=== PATIENT | male | born 1945 | race Caucasian/White ===

== ENCOUNTER 2018-03-30 00:35 | Inpatient (IN) | payer MEDICARE, MEDICAID ==
[2018-03-30] MEDS ORDERED: NORMAL SALINE 1000 ML 2,000 ML IV ONE (00:50)
[2018-03-30] MEDS ORDERED: PIPERACILLIN/TAZOBACTAM 4.5 GM VIAL IV ONE (00:50)
[2018-03-30] MEDS ORDERED: VANCOMYCIN HCL INJ 1000 MG VIAL IV ONE (00:50)
[2018-03-30] MEDS ORDERED: ACETAMINOPHEN 650 MG SUPP.RECT PR ONE (00:53)
--- NOTE | 2018-03-30 00:57 | ER Document Report ---
ED Fever - General Stated Complaint: FEVER Mode of Arrival: Medic Information source: Outside Facility Records TRAVEL OUTSIDE OF THE [place] 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 Patient is poorly responsive but cannot give accurate history. History therefore are by transfer record notes. He apparently received Tylenol 650 mg suppository which was noted at the time of nursing assessment as well. - Related Data Allergies/Adverse Reactions: No Known Allergies Allergy (Verified 09/08/14 17:36) Past Medical History - Social History Smoking Status: Unknown if Ever Smoked Family History: Reviewed & Not Pertinent - Past Medical History Cardiac Medical History: Reports: Hx Atrial Fibrillation, Hx Hypertension Neurological Medical History: Reports: Hx Cerebrovascular Accident Endocrine Medical History: Reports: Hx Hypothyroidism Psychiatric Medical History: Reports: Hx Bipolar Disorder, Hx Depression, Hx Schizophrenia Infectious Medical History: Reports: Hx C-Diff - September 2013 Past Surgical History: Reports: Hx Herniorrhaphy - ventral hernia repair - Immunizations Hx Diphtheria, Pertussis, Tetanus Vaccination: Yes Review of Systems - Review of Systems -: Yes ROS unobtainable due to patient's medical condition Physical Exam - Vital signs Vitals: Temp Pulse Resp BP Pulse Ox 102.7 F H 166 H 36 H 79/50 L 84 L 03/30/18 00:35 03/30/18 00:35 03/30/18 00:35 03/30/18 00:35 03/30/18 00:35 Interpretation: Tachycardic - Notes Notes: GENERAL: VS as per nursing doc. chronically ill-appearing male in no acute distress. HEAD: Atraumatic, normocephalic. EYES: Pupils are sluggish 2 mm, sclera anicteric, no conjunctival injection or discharge. ENT: Nares patent, airway is patent, dry mucous membranes. NECK: Normal range of motion, no lymphadenopathy. LUNGS: Rhonchi noted bilaterally with scattered rails i. HEART: Very tachycardic, slightly irregular. ABDOMEN: Soft, scaphoid, no appreciable tenderness noted. Midline scar noted BACK: No notable CVA tenderness. EXTREMITIES: Contractures noted with muscular wasting NEUROLOGICAL: Moans to noxious stimuli with some withdrawal. PSYCH: Poorly responsive. SKIN: Warm, dry, no petechiae Course - Re-evaluation Re-evalutation: 03/30/18 04:38 I spoke with the patient's next of kin who is Janette Tobias [phone] and discussed with her the severity of his illness and prognostically he has little reserved for such an illness. She states he should remain a full code at this point and I obtained verbal consent from her for a central line if needed after a risk discussion to include significant bleeding, infection, pneumothorax. 03/30/18 05:05 Patient had a fairly undulating course tachycardia would intermittently improved and worsen again spontaneously and blood pressure would stay above 65 map and then would drop below requiring us to finally start Levophed. At this point he is requiring about 6/h to keep his blood pressure map above 65 with a heart rate in the 110s-120s. - Vital Signs Vital signs: Temp Pulse Resp BP Pulse Ox 97.2 F 101 H 22 H 129/67 H 96 03/31/18 21:47 03/31/18 20:50 03/31/18 20:50 03/31/18 18:10 03/31/18 20:50 - Laboratory Result Diagrams: 03/31/18 10:55 03/31/18 20:55 Laboratory results interpreted by me: 03/30/18 03/30/18 03/30/18 01:05 01:05 01:05 RBC 3.39 L Hgb 10.8 L Hct 32.2 L RDW 16.6 H Seg Neuts % (Manual) 82 H Band Neutrophils % 1 L Lymphocytes % (Manual) 12 L Abs Neuts (Manual) 8.5 H PT 10.5 L ABG pO2 ABG HCO3 ABG O2 Saturation VBG pH Sodium 148.4 H Carbon Dioxide 32 H BUN 51 H Est GFR (Non-Af Amer) 59 L Direct Bilirubin 0.7 H AST 121 H Creatine Kinase Albumin 2.9 L Urine Protein Urine Blood Urine Urobilinogen Ur Leukocyte Esterase Urine Ascorbic Acid 03/30/18 03/30/18 03/30/18 01:05 01:05 01:05 RBC Hgb Hct RDW Seg Neuts % (Manual) Band Neutrophils % Lymphocytes % (Manual) Abs Neuts (Manual) PT ABG pO2 ABG HCO3 ABG O2 Saturation VBG pH 7.49 H Sodium Carbon Dioxide BUN Est GFR (Non-Af Amer) Direct Bilirubin AST Creatine Kinase 477 H Albumin Urine Protein 100 H Urine Blood SMALL H Urine Urobilinogen 8.0 H Ur Leukocyte Esterase TRACE H Urine Ascorbic Acid 40 H 03/30/18 03:21 RBC Hgb Hct RDW Seg Neuts % (Manual) Band Neutrophils % Lymphocytes % (Manual) Abs Neuts (Manual) PT ABG pO2 61.8 L ABG HCO3 24.6 H ABG O2 Saturation 91.5 L VBG pH Sodium Carbon Dioxide BUN Est GFR (Non-Af Amer) Direct Bilirubin AST Creatine Kinase Albumin Urine Protein Urine Blood Urine Urobilinogen Ur Leukocyte Esterase Urine Ascorbic Acid - Diagnostic Test Radiology reviewed: Image reviewed - Consistent with pneumonia, Reports reviewed - EKG Interpretation by Me Rate: Tachycardia - Appears to be atrial fibrillation with rate 179 a single PVC is noted. Rate related ST abnormalities. No EKG for comparison. - Consults Dr. Cruz Consulted provider: will come to ER Critical Care Note - Critical Care Note Total time excluding time spent on procedures (mins): 45 Discharge - Discharge Clinical Impression: Pneumonia Qualifiers: Pneumonia type: due to unspecified organism Laterality: unspecified laterality Lung location: unspecified part of lung Qualified Code(s): J18.9 - Pneumonia, unspecified organism Sepsis Qualifiers: Sepsis type: sepsis due to unspecified organism Qualified Code(s): A41.9 - Sepsis, unspecified organism Atrial fibrillation Qualifiers: Atrial fibrillation type: chronic Qualified Code(s): I48.2 - Chronic atrial fibrillation Condition: Critical Disposition: ADMITTED INPATIENT Admitting Provider: Hospitalist Dr. Cruz Unit Admitted: ICU
[2018-03-30 01:30] LABS: VENOUS BLOOD BASE EXCESS 6.9 mmol/L; VENOUS BLOOD HCO3 31.1 mmol/L (20-32); VENOUS BLOOD PCO2 42.1 mmHg (35-63); VENOUS BLOOD PH 7.49 (7.30-7.42)
[2018-03-30 01:31] LABS: HEMATOCRIT 32.2 % (37.9-51.0); HEMOGLOBIN 10.8 g/dL (13.5-17.0); INTERNATIONAL RATION (INR) 0.71; MEAN CORPUSCULAR HEMOGLOBIN 31.9 pg (27.0-33.4); MEAN CORPUSCULAR HGB CONC 33.6 g/dL (32.0-36.0); MEAN CORPUSCULAR VOLUME 95 fl (80-97); PLATELET COUNT 215 10^3/uL (150-450); PROTHROMBIN TIME 10.5 SEC (11.4-15.4); RED BLOOD COUNT 3.39 10^6/uL (4.35-5.55); RED CELL DISTRIBUTION WIDTH 16.6 % (11.5-14.0); WHITE BLOOD COUNT 10.2 10^3/uL (4.0-10.5)
[2018-03-30 01:41] LABS: APPEARANCE,URINE CLEAR; BILIRUBIN,URINE NEGATIVE (NEGATIVE); COLOR,URINE DARK YELLOW; GLUCOSE, URINE NEGATIVE (NEGATIVE); KETONES,URINE NEGATIVE (NEGATIVE); URINE SPECIFIC GRAVITY 1.027
[2018-03-30 01:42] LABS: LEUKOCYTE ESTERASE,URINE TRACE (NEGATIVE); NITRITE,URINE NEGATIVE (NEGATIVE); PROTEIN,URINE 100 mg/dL (NEGATIVE)
[2018-03-30 01:48] LABS: ABSOLUTE LYMPHOCYTES# (MANUAL) 1.2 10^3/uL (0.5-4.7); ABSOLUTE MONOCYTES # (MANUAL) 0.5 10^3/uL (0.1-1.4); ABSOLUTE NEUTROPHILS# (MANUAL) 8.5 10^3/uL (1.7-8.2); BAND NEUTROPHILS % (MANUAL) 1 % (3-5); BASOPHILS % (MANUAL) 0 % (0-2); EOSINOPHILS % (MANUAL) 0 % (0-6); LYMPHOCYTES % (MANUAL) 12 % (13-45); MONOCYTES % (MANUAL) 5 % (3-13); SEGMENTED NEUTROPHILS % (MAN) 82 % (42-78); TOTAL CELLS COUNTED 100
--- NOTE | 2018-03-30 01:48 | RADIOLOGY REPORT (SQ) ---
EXAM DESCRIPTION: CLINICAL HISTORY: 72 years Male Fever COMPLETED DATE/TME: 03/30/2018 00:50 COMPARISON: 07/04/2013. FINDINGS: Limited study by patient rotation. Left hilum is prominent and there is scarring or atelectasis in the midlung. Recommend follow-up with CT scan for further evaluation. Right apex is suboptimally evaluated increased density in the lateral aspect of the right upper lobe and right lung base which may reflect acute infectious or inflammatory process. IMPRESSION: Patchy areas of density in the right upper and right lower lobe which may reflect acute infectious or inflammatory process Prominent left hilum with some post obstructive atelectasis or infiltrate in the left mid and upper lung field. Recommend further evaluation with chest CT
[2018-03-30 01:49] LABS: ANISOCYTOSIS 1+; PLATELET COMMENT ADEQUATE; POLYCHROMASIA 1+
[2018-03-30 01:51] LABS: ALANINE AMINOTRANSFERASE 50 U/L (21-72); ALBUMIN 2.9 g/dL (3.5-5.0); ALKALINE PHOSPHATASE 53 U/L (38-126); ANION GAP 10 (5-19); ASPARTATE AMINO TRANSFERASE 121 U/L (17-59); BILIRUBIN,DIRECT 0.7 mg/dL (0.0-0.4); BILIRUBIN,TOTAL 0.9 mg/dL (0.2-1.3); BLOOD UREA NITROGEN 51 mg/dL (7-20); CALCIUM 9.7 mg/dL (8.4-10.2); CARBON DIOXIDE 32 mmol/L (22-30); CHLORIDE 106 mmol/L (98-107); GLUCOSE 101 mg/dL (75-110); POTASSIUM 3.7 mmol/L (3.6-5.0); SODIUM 148.4 mmol/L (137-145); TOTAL PROTEIN 6.6 g/dL (6.3-8.2)
[2018-03-30 03:39] LABS: ARTERIAL BLOOD BASE EXCESS -0.4 mmol/L; ARTERIAL BLOOD H2CO3 1.26 mmol/L (1.05-1.35); ARTERIAL BLOOD HCO3 24.6 mmol/L (20-24); ARTERIAL BLOOD O2 SATURATION 91.5 % (94-98); ARTERIAL BLOOD PCO2 41.8 mmHg (35-45); ARTERIAL BLOOD PH 7.39 (7.35-7.45); ARTERIAL BLOOD PO2 61.8 mmHg (80-100); ARTERIAL BLOOD TOTAL CO2 25.9 mmol/L (23-27)
[2018-03-30 03:40] LABS: ARTERIAL BLOOD FIO2 3L
[2018-03-30] MEDS ORDERED: DEXTROSE 5%-WATER 250 ML with NOREPINEPHRINE BITARTRATE 4 MG IV PRN ×4 (03:47→05:01)
[2018-03-30] MEDS ORDERED: DILTIAZEM HCL INJ 25 MG/5 ML VIAL IV ONE ×3 (03:48→05:46)
[2018-03-30] MEDS ORDERED: DILTIAZEM HCL/D5W 125 MG/125 ML RTUINJ IV PRN ×2 (05:01→05:45)
[2018-03-30] MEDS ORDERED: IPRATROPIUM/ALBUTEROL 0.5-2.5 MG/3 ML AMPUL NEB PRN (05:01)
[2018-03-30] MEDS ORDERED: GUAIFENESIN SYRP 200 MG/10 ML UDC PO PRN (05:01)
[2018-03-30] MEDS ORDERED: ACETAMINOPHEN 325 MG TABLET PO PRN (05:01)
[2018-03-30] MEDS ORDERED: NORMAL SALINE 1000 ML 1,000 ML IV PRN (05:15)
[2018-03-30] MEDS ORDERED: VANCOMYCIN HCL 0 MG in DEXTROSE 5%-WATER 250 ML IV NR ×2 (05:15→11:45)
[2018-03-30] MEDS ORDERED: DIGOXIN INJ 0.5 MG/2 ML AMPULE IV ONE ×2 (05:50→22:15)
[2018-03-30] MEDS ORDERED: HYDROCORTISONE SOD SUCCINATE INJ/PF 100 MG/2 ML SDV IV ONE (05:57)
--- NOTE | 2018-03-30 06:31 | PDOC H&P ---
History of Present Illness Admission Date/PCP: 03/30/18 05:47 Patient complains of: Fever History of Present Illness: NAIN CALL is a 72 year old male with a past medical history of atrial fibrillation, CVA and subsequent left-sided weakness, schizophrenia, bipolar disorder [facility] Patient is found poorly responsive and unable to provide history. Workup reveals severe hypotension, A. fib with RVR, right-sided pneumonia, severe sepsis, hypoxia and prerenal azotemia. He started on IV Cardizem, levo fed and receives 3 L of normal saline. Patient's next of kin his niece is at bedside verifying his wishes for DNR. Past Medical History Cardiac Medical History: Reports: Atrial Fibrillation, Hypertension Endocrine Medical History: Reports: Hypothyroidism Psychiatric Medical History: Reports: Bipolar Disorder, Depression, Schizoaffective Disorder Infectious Medical History: Reports: Clostridium Difficile - September 2013 Past Surgical History Past Surgical History: Reports: Herniorrhaphy - ventral hernia repair Social History Information Source: Relative, Emergency Med Personnel, [facility] Records Lives with: Retirement Smoking Status: Unknown if Ever Smoked Frequency of Alcohol Use: None Hx Recreational Drug Use: No Drugs: None Hx Prescription Drug Abuse: No - Advance Directive Resuscitation Status: Full Code Family History Family History: Hypertension Parental Family History Reviewed: Yes Children Family History Reviewed: Yes Sibling(s) Family History Reviewed.: Yes Medication/Allergy Home Medications: Apixaban [Eliquis] 5 mg PO BID 07/04/13 Aspirin [Aspirin EC] 81 mg PO DAILY 07/04/13 Benztropine Mesylate 1 mg PO DAILY 07/04/13 Clonazepam [Klonopin 0.5 mg Tablet Rapid Dissolve] 0.5 mg PO BID PRN 07/04/13 Haloperidol [Haldol 5 mg Tablet] 5 mg PO QHS 07/04/13 Hydrocodone Bit/Acetaminophen [Hydrocodon-Acetaminophen 5-500] 1 each PO BID PRN 07/04/13 Levothyroxine Sodium 50 mcg PO DAILY 07/04/13 Mirtazapine 30 mg PO QHS 07/04/13 Sertraline HCl [Zoloft] 150 mg PO QAM 07/04/13 Vitamin B Complex [Vitamin B-100 Complex] 1 each PO DAILY 07/04/13 Lorazepam [Ativan] 1 mg PO BID #14 tablet 08/17/14 Levofloxacin [Levaquin 500 mg Tablet] 500 mg PO DAILY #7 tablet 09/08/14 Albuterol Sulfate [Proair HFA] 2 puff IH Q4 PRN #1 inhaler 09/14/14 Atorvastatin Calcium [Lipitor] 20 mg PO QHS #10 tablet 09/14/14 Fluticasone/Salmeterol [Advair 250-50 Diskus 14 Dose/Diskus] 1 inh IH Q12 #0 inhaler 09/14/14 Omeprazole 20 mg PO DAILY #0 tablet. 09/14/14 Tamsulosin HCl [Flomax] 0.4 mg PO DAILY #0 cap.sr.24h 09/14/14 Allergies/Adverse Reactions: No Known Allergies Allergy (Verified 09/08/14 17:36) Review of Systems ROS unobtainable: Due to mental status - Unobtainable Constitutional: PRESENT: as per HPI, other - Unobtainable Physical Exam Vital Signs: Temp Pulse Resp BP Pulse Ox 102.7 F H 166 H 29 H 107/53 L 100 03/30/18 00:35 03/30/18 00:35 03/30/18 06:01 03/30/18 06:01 03/30/18 06:01 General appearance: PRESENT: disheveled, severe distress, thin, other - Temporal wasting, global muscular atrophy and contractures. ABSENT: cooperative Head exam: PRESENT: atraumatic, normocephalic Eye exam: PRESENT: conjunctiva pink, EOMI, PERRLA. ABSENT: scleral icterus Ear exam: PRESENT: normal external ear exam Mouth exam: PRESENT: dry mucosa, tongue midline. ABSENT: laceration, moist Neck exam: ABSENT: carotid bruit, JVD, lymphadenopathy, thyromegaly Respiratory exam: PRESENT: accessory muscle use, prolonged expiratory phas, retraction, rhonchi, tachypnea Cardiovascular exam: PRESENT: irregular rhythm, +S1, +S2, tachycardia Pulses: PRESENT: normal dorsalis pedis pul Vascular exam: PRESENT: normal capillary refill GI/Abdominal exam: PRESENT: normal bowel sounds, soft. ABSENT: distended, guarding, mass, organolmegaly, rebound, tenderness Rectal exam: PRESENT: deferred Extremities exam: PRESENT: full ROM. ABSENT: calf tenderness, clubbing, pedal edema Neurological exam: PRESENT: altered, awake, oriented to person, CN II-XII grossly intact. ABSENT: motor sensory deficit Skin exam: PRESENT: dry, intact, warm. ABSENT: cyanosis, rash Results Impressions: Chest X-Ray 03/30/18 00:50 IMPRESSION: Patchy areas of density in the right upper and right lower lobe which may reflect acute infectious or inflammatory process Prominent left hilum with some post obstructive atelectasis or infiltrate in the left mid and upper lung field. Recommend further evaluation with chest CT Assessment & Plan - Diagnosis (1) Atrial fibrillation Is this a current diagnosis for this admission?: Yes Plan: IV Cardizem, optimize fluid status, digoxin as needed, follow-up cardiac enzymes (2) Pneumonia Is this a current diagnosis for this admission?: Yes Plan: Pneumonia care set, follow-up CBC, blood and sputum culture (3) Sepsis Is this a current diagnosis for this admission?: Yes Plan: Secondary to pneumonia, IV fluid challenge, empiric Solu-Cortef, levo fed as needed. Patient's CODE STATUS verified as DNR - Time Time Spent: 50 to 70 Minutes - Inpatient Certification Medical Necessity: Need Close Monitoring Due to Risk of Patient Decompensation
[2018-03-30 07:11] LABS: CREATINE KINASE MB 2.9 ng/mL (<4.55)
[2018-03-30 07:16] LABS: TROPONIN I 0.077 ng/mL
[2018-03-30] MEDS ORDERED: LEVALBUTEROL HCL NEB 1.25 MG/3 ML AMPUL NEB SCH (08:00)
[2018-03-30 08:21] LABS: CREATINE KINASE MB 5.17 ng/mL (<4.55); TROPONIN I 0.061 ng/mL
[2018-03-30] MEDS ORDERED: APIXABAN 5 MG TABLET PO SCH (10:00)
[2018-03-30] MEDS ORDERED: CLONAZEPAM 1 MG TABLET PO SCH (10:00)
[2018-03-30] MEDS ORDERED: ASPIRIN 81 MG TABLET, ENT COATED PO SCH (10:00)
[2018-03-30] MEDS ORDERED: METHYLPREDNISOLONE INJ 125 MG/2 ML SDV IV ONE (11:17)
[2018-03-30] MEDS ORDERED: RINGERS SOLUTION,LACTATED 1,000 ML IV ONE (11:30)
[2018-03-30] MEDS ORDERED: DIAZEPAM INJ 10 MG/2 ML DISP.SYRIN IV PRN (11:32)
[2018-03-30] MEDS: CEFEPIME 2 GM/D5W RTU 2 GM/50 ML RTUPB IV SCH ×2 (11:45→17:48)
[2018-03-30] MEDS: LEVALBUTEROL HCL NEB 1.25 MG/3 ML AMPUL NEB SCH ×3 (11:51→20:30)
[2018-03-30] MEDS: IPRATROPIUM BROMIDE 0.02% NEB 0.5 MG/2.5 ML AMPUL NEB SCH ×3 (11:51→20:30)
[2018-03-30] MEDS: NORMAL SALINE 1000 ML 1,000 ML IV PRN ×2 (12:23→22:24)
[2018-03-30] MEDS ORDERED: DIGOXIN INJ 0.5 MG/2 ML AMPULE ONE (12:26)
[2018-03-30] MEDS: ENOXAPARIN SODIUM INJ 60 MG/0.6 ML DISP.SYRIN SUBCUT SCH ×2 (12:29→22:23)
[2018-03-30] MEDS: DIGOXIN INJ 0.5 MG/2 ML AMPULE IV SCH (12:30)
--- NOTE | 2018-03-30 12:33 | PDOC PROGRESS REPORT ---
Subjective Progress Note for:: 03/30/18 Subjective:: NAIN CALL is a 72 year old male presenting with a fever of 102 from [facility] facility. In the ER he was found to be poorly responsive with severe sepsis causing & hypotension, A. fib with RVR, and an acute exacerbation of COPD versus multilobar pneumonia with hypoxia. He was unable to provide any medical information due to his severe illness and dementia. He was admitted to the intensive care unit for further treatment. 03/30/18: Mr. Call has been started on a aggressive ulnar toilet utilizing levalbuterol and ipratropium given every 4 hours. Additionally IV steroids and IV fluids have been provided to treat the inflammatory and dehydration components of his illness. His hypertension has been addressed with both IV fluids and IV Levophed however the atrial fibrillation with RVR remains poorly controlled and further efforts at controlling it with digoxin will be continued. Sepsis is being treated with a multiple antibiotic therapy regimen. Thus far his response has been somewhat limited however will make continued efforts while providing both supportive and comfortive care. Reason For Visit: SEVERE SEPSIS PNEUMONIA, DEMENTIA Physical Exam Vital Signs: Temp Pulse Resp BP Pulse Ox 97.2 F 126 H 24 H 99/48 L 98 03/30/18 10:10 03/30/18 11:53 03/30/18 11:53 03/30/18 10:00 03/30/18 11:53 Intake & Output 03/29/18 03/30/18 03/31/18 06:59 06:59 06:59 Intake Total 43 37 Output Total 100 Balance 43 -63 Weight 51.3 kg General appearance: PRESENT: thin, other - Poorly nourished, in moderate distress due to respiratory status Head exam: PRESENT: atraumatic, normocephalic Eye exam: PRESENT: conjunctiva pink. ABSENT: conjunctival injection Ear exam: PRESENT: normal external ear exam. ABSENT: bleeding, drainage Mouth exam: PRESENT: moist, neck supple Neck exam: ABSENT: JVD, thyromegaly, tracheal deviation Respiratory exam: PRESENT: accessory muscle use, decreased breath sounds, prolonged expiratory phas, rales - Coarse in all medrano, retraction, symmetrical , tachypnea, wheezes Cardiovascular exam: PRESENT: irregular rhythm, tachycardia Pulses: PRESENT: normal carotid pulses, normal radial pulses, normal dorsalis pedis pul Vascular exam: PRESENT: normal capillary refill, pallor - Moderate with barkley tones noted in the skin GI/Abdominal exam: PRESENT: soft. ABSENT: distended Rectal exam: PRESENT: deferred Extremities exam: ABSENT: calf tenderness, joint swelling, pedal edema Musculoskeletal exam: ABSENT: deformity, dislocation Neurological exam: PRESENT: alert, awake, CN II-XII grossly intact. ABSENT: motor sensory deficit Psychiatric exam: PRESENT: anxious, flat affect. ABSENT: agitated Skin exam: PRESENT: dry, pallor. ABSENT: jaundice, rash, urticaria Results Laboratory Results: 03/30/18 03/30/18 07:27 07:27 Creatine Kinase 431 H CK-MB (CK-2) 5.17 H Troponin I 0.061 Impressions: Chest X-Ray 03/30/18 00:50 IMPRESSION: Patchy areas of density in the right upper and right lower lobe which may reflect acute infectious or inflammatory process Prominent left hilum with some post obstructive atelectasis or infiltrate in the left mid and upper lung field. Recommend further evaluation with chest CT Status: Image reviewed by me Assessment & Plan - Diagnosis (1) Atrial fibrillation Qualifiers: Atrial fibrillation type: chronic Qualified Code(s): I48.2 - Chronic atrial fibrillation Is this a current diagnosis for this admission?: Yes Plan: Continue to make efforts at rate control with digoxin and provide anticoagulation therapy with Lovenox (2) Pneumonia Qualifiers: Pneumonia type: due to unspecified organism Laterality: unspecified laterality Lung location: unspecified part of lung Qualified Code(s): J18.9 - Pneumonia, unspecified organism Is this a current diagnosis for this admission?: Yes Plan: As the patient is felt to be septic with hypotension, tachycardia and fever a likely source of sepsis would be pneumonia, though the x-ray evidence is not clear for supporting a pneumonia versus other inflammatory process. Patient is being treated with a multiple IV antibiotic drug regiment utilizing cefepime and vancomycin. (3) Sepsis Qualifiers: Sepsis type: sepsis due to unspecified organism Qualified Code(s): A41.9 - Sepsis, unspecified organism Is this a current diagnosis for this admission?: Yes Plan: Evidence by hypotension, tachycardia and fever a sepsis protocol has been initiated and the patient's been started on cefepime and vancomycin to cover for HCAP. Patient is also been started on Levophed to support his blood pressure and is being given additional intravascular volume support with IV fluids. (4) COPD (chronic obstructive pulmonary disease) Qualifiers: COPD type: unspecified COPD Qualified Code(s): J44.9 - Chronic obstructive pulmonary disease, unspecified Is this a current diagnosis for this admission?: Yes Plan: Clinical evaluation shows significant bronchospasm with poor air movement and significant labored breathing with retractions and use of accessory musculature. A vigorous pulmonary toilet, IV steroids and supplemental O2 with face mask or BiPAP will be employed to try to improve the respiratory status. (5) Dementia Qualifiers: Dementia type: unspecified type Dementia behavioral disturbance: without behavioral disturbance Qualified Code(s): F03.90 - Unspecified dementia without behavioral disturbance Is this a current diagnosis for this admission?: Yes Plan: Patient has significant dementia and this is making it difficult to do a complete assessment as he is not capable of providing adequate meaningful responses to further his medical care at this point. - Time Time Spent with patient: 35 or more minutes Medications reviewed and adjusted accordingly: Yes Anticipated discharge: SNF Within: Other
--- NOTE | 2018-03-30 15:21 | EKG REPORT ---
SEVERITY:- ABNORMAL ECG - ATRIAL FIBRILLATION WITH RAPID V-RATE VENTRICULAR PREMATURE COMPLEX REPOLARIZATION ABNORMALITY, PROB RATE RELATED : Confirmed by: Maryanne Richardson MD 30-Mar-2018 15:20:57
[2018-03-30 17:14] LABS: CREATINE KINASE MB 6.11 ng/mL (<4.55)
[2018-03-30 17:18] LABS: TROPONIN I 0.055 ng/mL
[2018-03-30] MEDS ORDERED: HALOPERIDOL 5 MG TABLET PO SCH (22:00)
[2018-03-30] MEDS: METHYLPREDNISOLONE INJ 40 MG/1 ML SDV IV SCH (22:23)
[2018-03-31] MEDS: IPRATROPIUM BROMIDE 0.02% NEB 0.5 MG/2.5 ML AMPUL NEB SCH ×6 (00:30→20:51)
[2018-03-31] MEDS: LEVALBUTEROL HCL NEB 1.25 MG/3 ML AMPUL NEB SCH ×6 (00:30→20:51)
[2018-03-31] MEDS: VANCOMYCIN HCL 500 MG in DEXTROSE 5%-WATER 100 ML IV SCH (05:56)
[2018-03-31] MEDS: METHYLPREDNISOLONE INJ 40 MG/1 ML SDV IV SCH ×3 (05:56→22:24)
[2018-03-31] MEDS: CEFEPIME 2 GM/D5W RTU 2 GM/50 ML RTUPB IV SCH ×2 (05:56→17:06)
[2018-03-31] MEDS: NORMAL SALINE 1000 ML 1,000 ML IV PRN ×2 (06:02→17:06)
[2018-03-31 06:40] LABS: HEMATOCRIT 28.4 % (37.9-51.0); HEMOGLOBIN 9.4 g/dL (13.5-17.0); MEAN CORPUSCULAR HEMOGLOBIN 31.5 pg (27.0-33.4); MEAN CORPUSCULAR HGB CONC 33.2 g/dL (32.0-36.0); MEAN CORPUSCULAR VOLUME 95 fl (80-97); PLATELET COUNT 173 10^3/uL (150-450); RED BLOOD COUNT 2.99 10^6/uL (4.35-5.55); RED CELL DISTRIBUTION WIDTH 16.2 % (11.5-14.0); WHITE BLOOD COUNT 8.2 10^3/uL (4.0-10.5)
[2018-03-31 06:45] LABS: BLOOD UREA NITROGEN 30 mg/dL (7-20); CALCIUM 9.5 mg/dL (8.4-10.2); GLUCOSE 149 mg/dL (75-110); POTASSIUM 3.2 mmol/L (3.6-5.0)
[2018-03-31 06:51] LABS: CARBON DIOXIDE 32 mmol/L (22-30); CHLORIDE 112 mmol/L (98-107); SODIUM 147.4 mmol/L (137-145)
[2018-03-31 06:57] LABS: ANION GAP 3 (5-19)
[2018-03-31] MEDS ORDERED: NORMAL SALINE 500 ML IV PRN (10:31)
--- NOTE | 2018-03-31 11:01 | PDOC PROGRESS REPORT ---
Subjective Progress Note for:: 03/31/18 Subjective:: NAIN CALL is a 72 year old male presenting with a fever of 102 from care home facility. In the ER he was found to be poorly responsive with severe sepsis causing & hypotension, A. fib with RVR, and an acute exacerbation of COPD versus multilobar pneumonia with hypoxia. He was unable to provide any medical information due to his severe illness and dementia. He was admitted to the intensive care unit for further treatment. 03/30/18: Mr. Call has been started on a aggressive ulnar toilet utilizing levalbuterol and ipratropium given every 4 hours. Additionally IV steroids and IV fluids have been provided to treat the inflammatory and dehydration components of his illness. His hypotension has been addressed with both IV fluids and IV Levophed however the atrial fibrillation with RVR remains poorly controlled and further efforts at controlling it with digoxin will be continued. Sepsis is being treated with a multiple antibiotic therapy regimen. Thus far his response has been somewhat limited however will make continued efforts while providing both supportive and comfortive care. 03/31/18: Otis is responded reasonably well to his increased pulmonary toilet with improvement in his respiratory status. His improvement has also included his cardiac status with a controlled rate for his atrial fibrillation utilizing digoxin and continuing the IV diltiazem. His blood pressure is stable without pressors, though his urine output has decreased slightly and will be treated with a fluid bolus. He remains relatively poorly responsive and that he seems to look into with his eyes but he makes no effort to talk or otherwise communicate. Reason For Visit: SEVERE SEPSIS PNEUMONIA, DEMENTIA Physical Exam Vital Signs: Temp Pulse Resp BP Pulse Ox 97.7 F 94 23 H 110/63 98 03/31/18 10:15 03/31/18 10:00 03/31/18 10:15 03/31/18 10:10 03/31/18 10:15 Intake & Output 03/30/18 03/31/18 04/01/18 06:59 06:59 06:59 Intake Total 43 3501 Output Total 1000 60 Balance 43 2501 -60 Weight 52.8 kg General appearance: PRESENT: no acute distress, thin Head exam: PRESENT: atraumatic, normocephalic Eye exam: PRESENT: conjunctiva pink. ABSENT: conjunctival injection Ear exam: PRESENT: normal external ear exam. ABSENT: bleeding, drainage Mouth exam: PRESENT: dry mucosa, tongue midline Teeth exam: PRESENT: poor dentation Throat exam: ABSENT: post pharyngeal erythema Neck exam: ABSENT: thyromegaly, tracheal deviation Respiratory exam: PRESENT: clear to auscultation chris, symmetrical, unlabored Cardiovascular exam: PRESENT: irregular rhythm. ABSENT: bradycardia, clicks, diastolic murmur, gallop, rubs, systolic murmur, tachycardia Pulses: PRESENT: normal radial pulses, normal dorsalis pedis pul GI/Abdominal exam: PRESENT: normal bowel sounds, soft Rectal exam: PRESENT: deferred Extremities exam: ABSENT: joint swelling, pedal edema Musculoskeletal exam: PRESENT: other - Patient seems to assume a like position whether he is lying on his side or on his back.. ABSENT: dislocation Neurological exam: PRESENT: alert, CN II-XII grossly intact, other - Unable to assess orientation as patient does not show any type of verbal response or other response that would allow for interpretation.. ABSENT: motor sensory deficit Psychiatric exam: PRESENT: flat affect, other - Mood cannot be assessed due to the patient's lack of responsiveness. Skin exam: ABSENT: jaundice, rash, urticaria Results Laboratory Results: 03/31/18 06:05 03/31/18 06:05 03/31/18 03/31/18 06:05 06:05 WBC 8.2 RBC 2.99 L Hgb 9.4 L Hct 28.4 L MCV 95 MCH 31.5 MCHC 33.2 RDW 16.2 H Plt Count 173 Sodium 147.4 H Potassium 3.2 L Chloride 112 H Carbon Dioxide 32 H Anion Gap 3 L BUN 30 H Creatinine 0.67 Est GFR ( Amer) > 60 Est GFR (Non-Af Amer) > 60 Glucose 149 H Calcium 9.5 03/30/18 03/30/18 03/30/18 07:27 07:27 16:26 Creatine Kinase 431 H 318 H CK-MB (CK-2) 5.17 H Troponin I 0.061 03/30/18 16:26 Creatine Kinase CK-MB (CK-2) 6.11 H Troponin I 0.055 Impressions: Chest X-Ray 03/30/18 00:50 IMPRESSION: Patchy areas of density in the right upper and right lower lobe which may reflect acute infectious or inflammatory process Prominent left hilum with some post obstructive atelectasis or infiltrate in the left mid and upper lung field. Recommend further evaluation with chest CT Assessment & Plan - Diagnosis (1) Atrial fibrillation Qualifiers: Atrial fibrillation type: chronic Qualified Code(s): I48.2 - Chronic atrial fibrillation Is this a current diagnosis for this admission?: Yes Plan: Continue rate control with digoxin and provide anticoagulation therapy with Lovenox (2) Pneumonia Qualifiers: Pneumonia type: due to unspecified organism Laterality: unspecified laterality Lung location: unspecified part of lung Qualified Code(s): J18.9 - Pneumonia, unspecified organism Is this a current diagnosis for this admission?: Yes Plan: As the patient is felt to be septic with hypotension, tachycardia and fever a likely source of sepsis would be pneumonia, though the x-ray evidence is not clear for supporting a pneumonia versus other inflammatory process. Patient is being treated with a multiple IV antibiotic drug regiment utilizing cefepime and vancomycin until his blood and urine cultures can be interpreted. (3) Sepsis Qualifiers: Sepsis type: sepsis due to unspecified organism Qualified Code(s): A41.9 - Sepsis, unspecified organism Is this a current diagnosis for this admission?: Yes Plan: Evidenced by hypotension, tachycardia and fever; a sepsis protocol was initiated and the patient's been started on cefepime (now switched to Invanz) and vancomycin to cover for HCAP. Patient was started on Levophed to support his blood pressure and was being given additional intravascular volume support with IV fluids. He is now stabilized well as indicated above. Will continue close observation for any adverse developments attributable to sepsis. (4) COPD (chronic obstructive pulmonary disease) Qualifiers: COPD type: unspecified COPD Qualified Code(s): J44.9 - Chronic obstructive pulmonary disease, unspecified Is this a current diagnosis for this admission?: Yes Plan: Clinical evaluation showed significant bronchospasm with poor air movement and significant labored breathing with retractions and use of accessory musculature. A vigorous pulmonary toilet, IV steroids and supplemental O2 with face mask or BiPAP were successfully employed to improve his respiratory status. (5) Dementia Qualifiers: Dementia type: unspecified type Dementia behavioral disturbance: without behavioral disturbance Qualified Code(s): F03.90 - Unspecified dementia without behavioral disturbance Is this a current diagnosis for this admission?: Yes Plan: Patient has significant dementia and this is making it difficult to do a complete assessment as he is not capable of providing adequate meaningful responses to facilitate his medical care. - Time Time Spent with patient: 35 or more minutes Medications reviewed and adjusted accordingly: Yes Anticipated discharge: Home with Homehealth, SNF
[2018-03-31 11:03] LABS: HEMATOCRIT 27.2 % (37.9-51.0); HEMOGLOBIN 9.2 g/dL (13.5-17.0); MEAN CORPUSCULAR HEMOGLOBIN 32.3 pg (27.0-33.4); MEAN CORPUSCULAR HGB CONC 33.8 g/dL (32.0-36.0); MEAN CORPUSCULAR VOLUME 96 fl (80-97); PLATELET COUNT 178 10^3/uL (150-450); RED BLOOD COUNT 2.84 10^6/uL (4.35-5.55); RED CELL DISTRIBUTION WIDTH 16.1 % (11.5-14.0); WHITE BLOOD COUNT 8.4 10^3/uL (4.0-10.5)
[2018-03-31] MEDS: ENOXAPARIN SODIUM INJ 60 MG/0.6 ML DISP.SYRIN SUBCUT SCH ×2 (11:03→22:25)
[2018-03-31] MEDS: DIGOXIN INJ 0.5 MG/2 ML AMPULE IV SCH (11:04)
[2018-03-31 11:17] LABS: BLOOD UREA NITROGEN 28 mg/dL (7-20); CHLORIDE 110 mmol/L (98-107); GLUCOSE 157 mg/dL (75-110)
[2018-03-31 11:26] LABS: CARBON DIOXIDE 33 mmol/L (22-30)
[2018-03-31 11:41] LABS: ANION GAP 3 (5-19)
[2018-03-31 11:42] LABS: POTASSIUM 2.8 mmol/L (3.6-5.0)
--- NOTE | 2018-03-31 11:43 | EKG REPORT ---
SEVERITY:- ABNORMAL ECG - SINUS TACHYCARDIA WITH IRREGULAR RATE 79-136 LOW VOLTAGE IN FRONTAL LEADS REPOL ABNRM SUGGESTS ISCHEMIA, DIFFUSE LEADS : Confirmed by: Maryanne Richardson MD 31-Mar-2018 11:42:24
[2018-03-31 11:44] LABS: APPEARANCE,URINE CLEAR; BILIRUBIN,URINE NEGATIVE (NEGATIVE); COLOR,URINE YELLOW; GLUCOSE, URINE NEGATIVE (NEGATIVE); KETONES,URINE NEGATIVE (NEGATIVE); LEUKOCYTE ESTERASE,URINE NEGATIVE (NEGATIVE); NITRITE,URINE NEGATIVE (NEGATIVE); PROTEIN,URINE NEGATIVE (NEGATIVE); URINE SPECIFIC GRAVITY 1.019; UROBILINOGEN,URINE NEGATIVE mg/dL (<2.0)
[2018-03-31] MEDS: POTASSIUM CHLORIDE 20 MEQ/50 ML RTU IV SCH ×3 (12:43→17:06)
[2018-03-31] MEDS ORDERED: POTASSI CL 20 MEQ/50 ML RIDER 60 MEQ/150 ML RTUPB IV ONE (22:19)
[2018-03-31] MEDS: HALOPERIDOL LACTATE INJ 5 MG/1 ML VIAL IV PRN (23:51)
[2018-04-01] MEDS: IPRATROPIUM BROMIDE 0.02% NEB 0.5 MG/2.5 ML AMPUL NEB SCH ×6 (00:11→20:04)
[2018-04-01] MEDS: LEVALBUTEROL HCL NEB 1.25 MG/3 ML AMPUL NEB SCH ×6 (00:11→20:04)
[2018-04-01] MEDS ORDERED: DILTIAZEM HCL INJ 25 MG/5 ML VIAL ONE (00:51)
[2018-04-01] MEDS ORDERED: DILTIAZEM HCL INJ 25 MG/5 ML VIAL IV ONE (01:30)
[2018-04-01] MEDS: NORMAL SALINE 1000 ML 1,000 ML IV PRN ×3 (02:32→23:57)
[2018-04-01 04:30] LABS: HEMATOCRIT 26.5 % (37.9-51.0); HEMOGLOBIN 8.7 g/dL (13.5-17.0); MEAN CORPUSCULAR HEMOGLOBIN 31.2 pg (27.0-33.4); MEAN CORPUSCULAR HGB CONC 32.9 g/dL (32.0-36.0); MEAN CORPUSCULAR VOLUME 95 fl (80-97); PLATELET COUNT 195 10^3/uL (150-450); RED CELL DISTRIBUTION WIDTH 16.4 % (11.5-14.0); WHITE BLOOD COUNT 9.8 10^3/uL (4.0-10.5)
[2018-04-01 04:44] LABS: ABSOLUTE LYMPHOCYTES# (MANUAL) 0.8 10^3/uL (0.5-4.7); ABSOLUTE MONOCYTES # (MANUAL) 0.3 10^3/uL (0.1-1.4); ABSOLUTE NEUTROPHILS# (MANUAL) 8.7 10^3/uL (1.7-8.2); BAND NEUTROPHILS % (MANUAL) 1 % (3-5); BASOPHILS % (MANUAL) 0 % (0-2); EOSINOPHILS % (MANUAL) 0 % (0-6); LYMPHOCYTES % (MANUAL) 8 % (13-45); MONOCYTES % (MANUAL) 3 % (3-13); SEGMENTED NEUTROPHILS % (MAN) 88 % (42-78); TOTAL CELLS COUNTED 100
[2018-04-01 04:47] LABS: ANISOCYTOSIS 1+; BURR CELLS 1+; OVALOCYTES 1+; PLATELET COMMENT ADEQUATE; POIKILOCYTOSIS 2+; POLYCHROMASIA SLIGHT
[2018-04-01] MEDS: CEFEPIME 2 GM/D5W RTU 2 GM/50 ML RTUPB IV SCH ×2 (05:22→17:26)
[2018-04-01] MEDS: METHYLPREDNISOLONE INJ 40 MG/1 ML SDV IV SCH (05:23)
[2018-04-01 05:38] LABS: BLOOD UREA NITROGEN 29 mg/dL (7-20); CALCIUM 9.6 mg/dL (8.4-10.2); CHLORIDE 120 mmol/L (98-107); GLUCOSE 129 mg/dL (75-110)
[2018-04-01 06:00] LABS: ANION GAP 6 (5-19); CARBON DIOXIDE 26 mmol/L (22-30); SODIUM 152.3 mmol/L (137-145)
[2018-04-01 06:05] LABS: POTASSIUM 3.9 mmol/L (3.6-5.0)
[2018-04-01] MEDS: VANCOMYCIN HCL 500 MG in DEXTROSE 5%-WATER 100 ML IV SCH (06:07)
[2018-04-01] MEDS: POTASSIUM CHLORIDE 20 MEQ/50 ML RTU IV SCH (09:09)
[2018-04-01] MEDS: ENOXAPARIN SODIUM INJ 60 MG/0.6 ML DISP.SYRIN SUBCUT SCH ×2 (10:36→23:05)
[2018-04-01] MEDS: DIGOXIN INJ 0.5 MG/2 ML AMPULE IV SCH (10:37)
--- NOTE | 2018-04-01 11:01 | PDOC PROGRESS REPORT ---
Subjective Progress Note for:: 04/01/18 Subjective:: NAIN CALL is a 72 year old male presenting with a fever of 102 from long term facility. In the ER he was found to be poorly responsive with severe sepsis causing & hypotension, A. fib with RVR, and an acute exacerbation of COPD versus multilobar pneumonia with hypoxia. He was unable to provide any medical information due to his severe illness and dementia. He was admitted to the intensive care unit for further treatment. 03/30/18: Mr. Call has been started on a aggressive ulnar toilet utilizing levalbuterol and ipratropium given every 4 hours. Additionally IV steroids and IV fluids have been provided to treat the inflammatory and dehydration components of his illness. His hypotension has been addressed with both IV fluids and IV Levophed however the atrial fibrillation with RVR remains poorly controlled and further efforts at controlling it with digoxin will be continued. Sepsis is being treated with a multiple antibiotic therapy regimen. Thus far his response has been somewhat limited however will make continued efforts while providing both supportive and comfortive care. 03/31/18: Otis is responded reasonably well to his increased pulmonary toilet with improvement in his respiratory status. His improvement has also included his cardiac status with a controlled rate for his atrial fibrillation utilizing digoxin and continuing the IV diltiazem. His blood pressure is stable without pressors, though his urine output has decreased slightly and will be treated with a fluid bolus. He remains relatively poorly responsive and that he seems to look into with his eyes but he makes no effort to talk or otherwise communicate. 04/01/18: Mr. Call continues to do well clinically and it would appear that he is probably at his usual baseline although this is somewhat different than what his family member has depicted as being his baseline. He continues to be nonverbal in his responses and is more reactive and trying to push anyone who gets close to his body space away. He does not appear to be uncomfortable. His heart rate is well controlled and his blood pressure is stable. He will be transferred to the medical floor as soon as a bed is available. Cultures have been negative thus far empiric antibiotic therapy will be discontinued tomorrow if they remain so. Reason For Visit: SEVERE SEPSIS PNEUMONIA, DEMENTIA Physical Exam Vital Signs: Temp Pulse Resp BP Pulse Ox 97.9 F 91 17 129/65 H 100 04/01/18 08:55 04/01/18 09:00 04/01/18 09:00 04/01/18 08:11 04/01/18 09:00 Intake & Output 03/31/18 04/01/18 04/02/18 06:59 06:59 06:59 Intake Total 3551 2300 Output Total 1000 1290 60 Balance 2551 1010 -60 Weight 52.8 kg 53.9 kg General appearance: PRESENT: no acute distress, other - Pushes examiner away in a reflexive action. Head exam: PRESENT: atraumatic, normocephalic Eye exam: PRESENT: conjunctiva pink. ABSENT: conjunctival injection Ear exam: PRESENT: normal external ear exam. ABSENT: bleeding, drainage Mouth exam: PRESENT: neck supple, tongue midline Neck exam: ABSENT: thyromegaly, tracheal deviation Respiratory exam: PRESENT: clear to auscultation chris, symmetrical, unlabored Cardiovascular exam: PRESENT: irregular rhythm. ABSENT: bradycardia, clicks, diastolic murmur, gallop, rubs, systolic murmur, tachycardia Pulses: PRESENT: normal radial pulses, normal dorsalis pedis pul Vascular exam: PRESENT: normal capillary refill. ABSENT: pallor GI/Abdominal exam: PRESENT: normal bowel sounds, soft Rectal exam: PRESENT: deferred Extremities exam: ABSENT: joint swelling, pedal edema Musculoskeletal exam: PRESENT: other - Patient assumes the position and has vomited range of motion and apparent contractures based upon this chronic positioning. ABSENT: ambulatory, dislocation, tenderness Neurological exam: PRESENT: alert, awake, oriented to person, CN II-XII grossly intact. ABSENT: oriented to place, oriented to time, oriented to situation, motor sensory deficit - To gross exam Psychiatric exam: PRESENT: flat affect, other - Adequate evaluation cannot be obtained to assess the patient any further than just determination of a flat affect Skin exam: ABSENT: jaundice, rash, urticaria Results Laboratory Results: 04/01/18 04:02 04/01/18 06:48 03/31/18 03/31/18 03/31/18 10:55 10:55 11:15 WBC 8.4 RBC 2.84 L Hgb 9.2 L Hct 27.2 L MCV 96 MCH 32.3 MCHC 33.8 RDW 16.1 H Plt Count 178 Seg Neutrophils % Lymphocytes % Monocytes % Eosinophils % Basophils % Absolute Neutrophils Absolute Lymphocytes Absolute Monocytes Absolute Eosinophils Absolute Basophils Sodium 146.0 H Potassium 2.8 L* Chloride 110 H Carbon Dioxide 33 H Anion Gap 3 L BUN 28 H Creatinine 0.62 Est GFR ( Amer) > 60 Est GFR (Non-Af Amer) > 60 Glucose 157 H Calcium 9.0 Magnesium 2.0 TSH Urine Color YELLOW Urine Appearance CLEAR Urine pH 5.0 Ur Specific Howes 1.019 Urine Protein NEGATIVE Urine Glucose (UA) NEGATIVE Urine Ketones NEGATIVE Urine Blood NEGATIVE Urine Nitrite NEGATIVE Ur Leukocyte Esterase NEGATIVE Urine WBC (Auto) 1 Urine RBC (Auto) 2 03/31/18 04/01/18 04/01/18 20:55 04:02 04:02 WBC 9.8 RBC 2.80 L Hgb 8.7 L Hct 26.5 L MCV 95 MCH 31.2 MCHC 32.9 RDW 16.4 H Plt Count 195 Seg Neutrophils % Not Reportable Lymphocytes % Not Reportable Monocytes % Not Reportable Eosinophils % Not Reportable Basophils % Not Reportable Absolute Neutrophils Not Reportable Absolute Lymphocytes Not Reportable Absolute Monocytes Not Reportable Absolute Eosinophils Not Reportable Absolute Basophils Not Reportable Sodium Potassium 2.8 L* Chloride Carbon Dioxide Anion Gap BUN Creatinine Est GFR ( Amer) Est GFR (Non-Af Amer) Glucose Calcium Magnesium TSH 1.38 Urine Color Urine Appearance Urine pH Ur Specific Howes Urine Protein Urine Glucose (UA) Urine Ketones Urine Blood Urine Nitrite Ur Leukocyte Esterase Urine WBC (Auto) Urine RBC (Auto) 04/01/18 04/01/18 04:02 06:48 WBC RBC Hgb Hct MCV MCH MCHC RDW Plt Count Seg Neutrophils % Lymphocytes % Monocytes % Eosinophils % Basophils % Absolute Neutrophils Absolute Lymphocytes Absolute Monocytes Absolute Eosinophils Absolute Basophils Sodium 152.3 H Potassium 3.9 D 3.7 Chloride 120 H Carbon Dioxide 26 Anion Gap 6 BUN 29 H Creatinine 0.70 Est GFR ( Amer) > 60 Est GFR (Non-Af Amer) > 60 Glucose 129 H Calcium 9.6 Magnesium TSH Urine Color Urine Appearance Urine pH Ur Specific Howes Urine Protein Urine Glucose (UA) Urine Ketones Urine Blood Urine Nitrite Ur Leukocyte Esterase Urine WBC (Auto) Urine RBC (Auto) 03/30/18 03/30/18 03/30/18 07:27 07:27 16:26 Creatine Kinase 431 H 318 H CK-MB (CK-2) 5.17 H Troponin I 0.061 03/30/18 16:26 Creatine Kinase CK-MB (CK-2) 6.11 H Troponin I 0.055 Impressions: Chest X-Ray 03/30/18 00:50 IMPRESSION: Patchy areas of density in the right upper and right lower lobe which may reflect acute infectious or inflammatory process Prominent left hilum with some post obstructive atelectasis or infiltrate in the left mid and upper lung field. Recommend further evaluation with chest CT Assessment & Plan - Diagnosis (1) Atrial fibrillation Qualifiers: Atrial fibrillation type: chronic Qualified Code(s): I48.2 - Chronic atrial fibrillation Is this a current diagnosis for this admission?: Yes Plan: Continue rate control with digoxin and provide anticoagulation therapy with Lovenox (2) Pneumonia Qualifiers: Pneumonia type: due to unspecified organism Laterality: unspecified laterality Lung location: unspecified part of lung Qualified Code(s): J18.9 - Pneumonia, unspecified organism Is this a current diagnosis for this admission?: Yes Plan: As the patient is felt to be septic with hypotension, tachycardia and fever a likely source of sepsis would be pneumonia, though the x-ray evidence is not clear for supporting a pneumonia versus other inflammatory process. Patient is being treated with a multiple IV antibiotic drug regiment utilizing cefepime and vancomycin until his blood and urine cultures can be interpreted. (3) Sepsis Qualifiers: Sepsis type: sepsis due to unspecified organism Qualified Code(s): A41.9 - Sepsis, unspecified organism Is this a current diagnosis for this admission?: Yes Plan: Evidenced by hypotension, tachycardia and fever; a sepsis protocol was initiated and the patient's been started on cefepime (now switched to Invanz) and vancomycin to cover for HCAP. Patient was started on Levophed to support his blood pressure and was being given additional intravascular volume support with IV fluids. He is now stabilized well as indicated above. Will continue close observation for any adverse developments attributable to sepsis. (4) COPD (chronic obstructive pulmonary disease) Qualifiers: COPD type: unspecified COPD Qualified Code(s): J44.9 - Chronic obstructive pulmonary disease, unspecified Is this a current diagnosis for this admission?: Yes Plan: Clinical evaluation showed significant bronchospasm with poor air movement and significant labored breathing with retractions and use of accessory musculature. A vigorous pulmonary toilet, IV steroids and supplemental O2 with face mask or BiPAP were successfully employed to improve his respiratory status. Steroids will be discontinued today as the patient has shown dramatic improvement in his respiratory status. (5) Dementia Qualifiers: Dementia type: unspecified type Dementia behavioral disturbance: without behavioral disturbance Qualified Code(s): F03.90 - Unspecified dementia without behavioral disturbance Is this a current diagnosis for this admission?: Yes Plan: Patient has significant dementia and this is making it difficult to do a complete assessment as he is not capable of providing adequate meaningful responses to facilitate his medical care. - Time Time Spent with patient: 35 or more minutes Medications reviewed and adjusted accordingly: Yes Anticipated discharge: SNF Within: within 72 hours
[2018-04-01 12:45] LABS: DIGOXIN 5.6 ng/mL (0.8-2.0)
[2018-04-02] MEDS: LEVALBUTEROL HCL NEB 1.25 MG/3 ML AMPUL NEB SCH ×4 (01:29→16:25)
[2018-04-02] MEDS: IPRATROPIUM BROMIDE 0.02% NEB 0.5 MG/2.5 ML AMPUL NEB SCH ×4 (01:29→16:25)
[2018-04-02] MEDS: HALOPERIDOL LACTATE INJ 5 MG/1 ML VIAL IV PRN (03:10)
[2018-04-02] MEDS: CEFEPIME 2 GM/D5W RTU 2 GM/50 ML RTUPB IV SCH (05:42)
[2018-04-02 06:24] LABS: HEMATOCRIT 24.7 % (37.9-51.0); HEMOGLOBIN 8.3 g/dL (13.5-17.0); MEAN CORPUSCULAR HEMOGLOBIN 31.2 pg (27.0-33.4); MEAN CORPUSCULAR HGB CONC 33.5 g/dL (32.0-36.0); MEAN CORPUSCULAR VOLUME 93 fl (80-97); PLATELET COUNT 210 10^3/uL (150-450); RED BLOOD COUNT 2.65 10^6/uL (4.35-5.55); RED CELL DISTRIBUTION WIDTH 16.4 % (11.5-14.0); WHITE BLOOD COUNT 14.5 10^3/uL (4.0-10.5)
[2018-04-02] MEDS: VANCOMYCIN HCL 500 MG in DEXTROSE 5%-WATER 100 ML IV SCH (06:29)
[2018-04-02 06:43] LABS: APPEARANCE,URINE CLEAR; BILIRUBIN,URINE NEGATIVE (NEGATIVE); COLOR,URINE STRAW; GLUCOSE, URINE NEGATIVE (NEGATIVE); KETONES,URINE NEGATIVE (NEGATIVE); LEUKOCYTE ESTERASE,URINE NEGATIVE (NEGATIVE); NITRITE,URINE NEGATIVE (NEGATIVE); PROTEIN,URINE NEGATIVE (NEGATIVE); URINE SPECIFIC GRAVITY 1.013; UROBILINOGEN,URINE NEGATIVE mg/dL (<2.0)
[2018-04-02 06:48] LABS: DIGOXIN 0.85 ng/mL (0.8-2.0)
[2018-04-02 07:03] LABS: BLOOD UREA NITROGEN 24 mg/dL (7-20); CALCIUM 9.1 mg/dL (8.4-10.2); GLUCOSE 83 mg/dL (75-110)
[2018-04-02 07:08] LABS: CARBON DIOXIDE 28 mmol/L (22-30); CHLORIDE 115 mmol/L (98-107); SODIUM 146.3 mmol/L (137-145)
[2018-04-02 07:15] LABS: POTASSIUM 2.6 mmol/L (3.6-5.0)
[2018-04-02 07:16] LABS: ANION GAP 3 (5-19)
[2018-04-02 07:29] LABS: VANCOMYCIN,TROUGH 5.5 ug/mL (5.0-20.0)
[2018-04-02] MEDS ORDERED: POTASSI CL 20 MEQ/50 ML RIDER 20 MEQ/50 ML RTUPB IV ONE (08:45)
[2018-04-02 08:49] LABS: BLOOD UREA NITROGEN 22 mg/dL (7-20); CALCIUM 8.9 mg/dL (8.4-10.2); GLUCOSE 99 mg/dL (75-110)
[2018-04-02] MEDS: POTASSIUM CHLORIDE 20 MEQ/50 ML RTU IV SCH ×3 (08:50→12:53)
[2018-04-02 09:02] LABS: ANION GAP 5 (5-19); CARBON DIOXIDE 27 mmol/L (22-30); CHLORIDE 114 mmol/L (98-107); SODIUM 145.9 mmol/L (137-145)
[2018-04-02 09:08] LABS: POTASSIUM 2.5 mmol/L (3.6-5.0)
[2018-04-02] MEDS: ENOXAPARIN SODIUM INJ 60 MG/0.6 ML DISP.SYRIN SUBCUT SCH ×2 (09:17→22:05)
[2018-04-02] MEDS: NORMAL SALINE 1000 ML 1,000 ML IV PRN (09:19)
[2018-04-02] MEDS: DIGOXIN INJ 0.5 MG/2 ML AMPULE IV SCH (10:46)
--- NOTE | 2018-04-02 11:02 | PDOC PROGRESS REPORT ---
Subjective Progress Note for:: 04/02/18 Subjective:: NAIN CALL is a 72 year old male presenting with a fever of 102 from long-term facility. In the ER he was found to be poorly responsive with severe sepsis causing & hypotension, A. fib with RVR, and an acute exacerbation of COPD versus multilobar pneumonia with hypoxia. He was unable to provide any medical information due to his severe illness and dementia. He was admitted to the intensive care unit for further treatment. 03/30/18: Mr. Call has been started on a aggressive ulnar toilet utilizing levalbuterol and ipratropium given every 4 hours. Additionally IV steroids and IV fluids have been provided to treat the inflammatory and dehydration components of his illness. His hypotension has been addressed with both IV fluids and IV Levophed however the atrial fibrillation with RVR remains poorly controlled and further efforts at controlling it with digoxin will be continued. Sepsis is being treated with a multiple antibiotic therapy regimen. Thus far his response has been somewhat limited however will make continued efforts while providing both supportive and comfortive care. 03/31/18: Otis is responded reasonably well to his increased pulmonary toilet with improvement in his respiratory status. His improvement has also included his cardiac status with a controlled rate for his atrial fibrillation utilizing digoxin and continuing the IV diltiazem. His blood pressure is stable without pressors, though his urine output has decreased slightly and will be treated with a fluid bolus. He remains relatively poorly responsive and that he seems to look into with his eyes but he makes no effort to talk or otherwise communicate. 04/01/18: Mr. Call continues to do well clinically and it would appear that he is probably at his usual baseline although this is somewhat different than what his family member has depicted as being his baseline. He continues to be nonverbal in his responses and is more reactive and trying to push anyone who gets close to his body space away. He does not appear to be uncomfortable. His heart rate is well controlled and his blood pressure is stable. He will be transferred to the medical floor as soon as a bed is available. Cultures have been negative thus far empiric antibiotic therapy will be discontinued tomorrow if they remain so. 04/02/18: Nain remains stable today, with no change in his responsiveness. He continues to be contracted in a position and thus he remains tachypneic due to shallow breathing. His cultures have remained negative for growth and his heart rate is well controlled. He will be started on an oral diet today if cleared by speech on swallow study but I strongly suspect he will need need nutritional support with a PEG tube. This will be addressed with his family when the need is definitive. Hospice care would be another choice if the family desires to move to comfort measures only. Reason For Visit: SEVERE SEPSIS PNEUMONIA, DEMENTIA Physical Exam Vital Signs: Temp Pulse Resp BP Pulse Ox 99.3 F 90 36 H 100/68 96 04/02/18 10:00 04/02/18 08:57 04/02/18 10:00 04/02/18 09:11 04/02/18 10:00 Intake & Output 04/01/18 04/02/18 04/03/18 06:59 06:59 06:59 Intake Total 2300 2150 1000 Output Total 1290 1315 200 Balance 1010 835 800 Weight 53.9 kg 56.4 kg General appearance: PRESENT: no acute distress, other - somnolent not responsive to verbal stimuli Head exam: PRESENT: atraumatic, normocephalic Eye exam: ABSENT: periorbital swelling, scleral icterus Ear exam: ABSENT: bleeding, drainage, normal external ear exam Mouth exam: PRESENT: dry mucosa, neck supple, tongue midline Neck exam: ABSENT: JVD, thyromegaly, tracheal deviation Respiratory exam: PRESENT: clear to auscultation chris, decreased breath sounds - at bases due to very shallow respirations, symmetrical, tachypnea Cardiovascular exam: PRESENT: irregular rhythm. ABSENT: bradycardia, clicks, diastolic murmur, gallop, rubs, systolic murmur, tachycardia Pulses: PRESENT: normal radial pulses, normal dorsalis pedis pul Vascular exam: PRESENT: normal capillary refill. ABSENT: pallor GI/Abdominal exam: PRESENT: normal bowel sounds, soft Rectal exam: PRESENT: deferred Extremities exam: ABSENT: joint swelling, pedal edema Musculoskeletal exam: PRESENT: other - decreased muscle masses. ABSENT: ambulatory, dislocation, full ROM - flexion contractures of the bilateral knees and hips, tenderness Neurological exam: PRESENT: altered - somnolent and non-responsive to verbal stimuli, CN II-XII grossly intact - to gross exam Psychiatric exam: PRESENT: other - unabel to evaluate Skin exam: ABSENT: jaundice, rash, urticaria Results Laboratory Results: 04/02/18 05:56 04/02/18 08:10 04/01/18 04/02/18 04/02/18 10:55 05:45 05:56 WBC RBC Hgb Hct MCV MCH MCHC RDW Plt Count Sodium Potassium Chloride Carbon Dioxide Anion Gap BUN Creatinine Est GFR ( Amer) Est GFR (Non-Af Amer) Glucose Calcium Magnesium 2.0 1.8 Urine Color STRAW Urine Appearance CLEAR Urine pH 5.0 Ur Specific [place] 1.013 Urine Protein NEGATIVE Urine Glucose (UA) NEGATIVE Urine Ketones NEGATIVE Urine Blood SMALL H Urine Nitrite NEGATIVE Ur Leukocyte Esterase NEGATIVE Urine WBC (Auto) 4 Urine RBC (Auto) 5 04/02/18 04/02/18 04/02/18 05:56 05:56 08:10 WBC 14.5 H RBC 2.65 L Hgb 8.3 L Hct 24.7 L MCV 93 MCH 31.2 MCHC 33.5 RDW 16.4 H Plt Count 210 Sodium 146.3 H 145.9 H Potassium 2.6 L* D 2.5 L* Chloride 115 H 114 H Carbon Dioxide 28 27 Anion Gap 3 L 5 BUN 24 H 22 H Creatinine 0.68 0.66 Est GFR ( Amer) > 60 > 60 Est GFR (Non-Af Amer) > 60 > 60 Glucose 83 99 Calcium 9.1 8.9 Magnesium 1.7 Urine Color Urine Appearance Urine pH Ur Specific [place] Urine Protein Urine Glucose (UA) Urine Ketones Urine Blood Urine Nitrite Ur Leukocyte Esterase Urine WBC (Auto) Urine RBC (Auto) 03/30/18 03/30/18 03/30/18 07:27 07:27 16:26 Creatine Kinase 431 H 318 H CK-MB (CK-2) 5.17 H Troponin I 0.061 03/30/18 16:26 Creatine Kinase CK-MB (CK-2) 6.11 H Troponin I 0.055 Impressions: Chest X-Ray 03/30/18 00:50 IMPRESSION: Patchy areas of density in the right upper and right lower lobe which may reflect acute infectious or inflammatory process Prominent left hilum with some post obstructive atelectasis or infiltrate in the left mid and upper lung field. Recommend further evaluation with chest CT Assessment & Plan - Diagnosis (1) Atrial fibrillation Qualifiers: Atrial fibrillation type: chronic Qualified Code(s): I48.2 - Chronic atrial fibrillation Is this a current diagnosis for this admission?: Yes Plan: Continue rate control with digoxin and provide anticoagulation therapy with Lovenox (2) Pneumonia Qualifiers: Pneumonia type: due to unspecified organism Laterality: unspecified laterality Lung location: unspecified part of lung Qualified Code(s): J18.9 - Pneumonia, unspecified organism Is this a current diagnosis for this admission?: Yes Plan: As the patient is felt to be septic with hypotension, tachycardia and fever a likely source of sepsis would be pneumonia, though the x-ray evidence is not clear for supporting a pneumonia versus other inflammatory process or atelectasis. Patient was treated with a multiple IV antibiotic drug regiment utilizing cefepime and vancomycin until his blood and urine cultures remained negative for 3 days. His antibiotics will be switched to IV Ancef and his Nebulizer treatments will be reduced to q8hr. (3) Sepsis Qualifiers: Sepsis type: sepsis due to unspecified organism Qualified Code(s): A41.9 - Sepsis, unspecified organism Is this a current diagnosis for this admission?: Yes Plan: Evidenced by hypotension, tachycardia and fever; a sepsis protocol was initiated and the patient's was started on cefepime (switched to Invanz) and vancomycin to cover for HCAP. Patient was started on Levophed to support his blood pressure and was being given additional intravascular volume support with IV fluids. He is now stabilized well as indicated above. Will continue close observation for any adverse developments attributable to sepsis. WBC up today but no other changes noted. Antibiotics switched to Ancef to cover strep viridans recovered in his urine. (4) COPD (chronic obstructive pulmonary disease) Qualifiers: COPD type: unspecified COPD Qualified Code(s): J44.9 - Chronic obstructive pulmonary disease, unspecified Is this a current diagnosis for this admission?: Yes Plan: On admission: Clinical evaluation showed significant bronchospasm with poor air movement and significant labored breathing with retractions and use of accessory musculature. A vigorous pulmonary toilet, IV steroids and supplemental O2 with face mask or BiPAP were successfully employed to improve his respiratory status. 2nd day of care: Steroids will be discontinued today as the patient has shown dramatic improvement in his respiratory status. 3rd day of care: Reduce frequency of nebulizer therapy. Add budesonide nebs bid. (5) Dementia Qualifiers: Dementia type: unspecified type Dementia behavioral disturbance: without behavioral disturbance Qualified Code(s): F03.90 - Unspecified dementia without behavioral disturbance Is this a current diagnosis for this admission?: Yes Plan: Patient has significant dementia and this is making it difficult to do a complete assessment as he is not capable of providing adequate meaningful responses to facilitate his medical care. - Time Time Spent with patient: 35 or more minutes Medications reviewed and adjusted accordingly: Yes Anticipated discharge: SNF, Hospice
[2018-04-02] MEDS: CEFAZOLIN 1 GM/D5W RTU 1 GM/50 ML RTUPB IV SCH ×2 (11:29→17:09)
[2018-04-02] MEDS: BUDESONIDE NEB 0.5 MG/2 ML AMPUL NEB SCH ×2 (11:45→20:15)
[2018-04-02] MEDS: POTASSI CL 20 MEQ/D5-1/2NS 1L 1,000 ML IV PRN (16:00)
[2018-04-02] MEDS ORDERED: VANCOMYCIN HCL 750 MG in DEXTROSE 5%-WATER 250 ML IV SCH (18:00)
[2018-04-02 18:27] LABS: BLOOD UREA NITROGEN 19 mg/dL (7-20); CALCIUM 8.7 mg/dL (8.4-10.2); CARBON DIOXIDE 29 mmol/L (22-30); CHLORIDE 111 mmol/L (98-107); GLUCOSE 86 mg/dL (75-110); POTASSIUM 3.1 mmol/L (3.6-5.0)
[2018-04-02 18:33] LABS: ANION GAP 2 (5-19); SODIUM 141.8 mmol/L (137-145)
[2018-04-02] MEDS ORDERED: POTASSIUM CHLORIDE 20 MEQ/50 ML RTU IV ONE (21:00)
[2018-04-03] MEDS: LEVALBUTEROL HCL NEB 1.25 MG/3 ML AMPUL NEB SCH ×3 (00:56→16:47)
[2018-04-03] MEDS: IPRATROPIUM BROMIDE 0.02% NEB 0.5 MG/2.5 ML AMPUL NEB SCH ×3 (00:56→16:47)
[2018-04-03] MEDS: POTASSI CL 20 MEQ/D5-1/2NS 1L 1,000 ML IV PRN (03:02)
[2018-04-03] MEDS: CEFAZOLIN 1 GM/D5W RTU 1 GM/50 ML RTUPB IV SCH ×5 (03:04→23:17)
[2018-04-03 05:16] LABS: ANION GAP 5 (5-19); BLOOD UREA NITROGEN 15 mg/dL (7-20); CALCIUM 8.6 mg/dL (8.4-10.2); CARBON DIOXIDE 27 mmol/L (22-30); CHLORIDE 109 mmol/L (98-107); DIGOXIN 0.83 ng/mL (0.8-2.0); GLUCOSE 109 mg/dL (75-110); POTASSIUM 3.2 mmol/L (3.6-5.0); SODIUM 140.6 mmol/L (137-145)
[2018-04-03] MEDS: BUDESONIDE NEB 0.5 MG/2 ML AMPUL NEB SCH ×2 (08:22→20:14)
[2018-04-03] MEDS: ENOXAPARIN SODIUM INJ 60 MG/0.6 ML DISP.SYRIN SUBCUT SCH ×2 (09:09→21:23)
[2018-04-03] MEDS: DIGOXIN INJ 0.5 MG/2 ML AMPULE IV SCH (09:10)
[2018-04-03] MEDS: FENTANYL CITRATE INJ/PF 100 MCG/2 ML AMPUL INJ PRN ×2 (11:20→23:17)
[2018-04-03] MEDS: POTASSI CL 40 MEQ/D5-1/2NS 1L 1000 ML IV PRN ×2 (12:42→23:17)
--- NOTE | 2018-04-03 18:43 | PDOC PROGRESS REPORT ---
Subjective Progress Note for:: 04/03/18 Subjective:: NAIN CALL is a 72 year old male presenting with a fever of 102 from long term facility. In the ER he was found to be poorly responsive with severe sepsis causing & hypotension, A. fib with RVR, and an acute exacerbation of COPD versus multilobar pneumonia with hypoxia. He was unable to provide any medical information due to his severe illness and dementia. He was admitted to the intensive care unit for further treatment. 03/30/18: Mr. Call has been started on a aggressive ulnar toilet utilizing levalbuterol and ipratropium given every 4 hours. Additionally IV steroids and IV fluids have been provided to treat the inflammatory and dehydration components of his illness. His hypotension has been addressed with both IV fluids and IV Levophed however the atrial fibrillation with RVR remains poorly controlled and further efforts at controlling it with digoxin will be continued. Sepsis is being treated with a multiple antibiotic therapy regimen. Thus far his response has been somewhat limited however will make continued efforts while providing both supportive and comfortive care. 03/31/18: Otis is responded reasonably well to his increased pulmonary toilet with improvement in his respiratory status. His improvement has also included his cardiac status with a controlled rate for his atrial fibrillation utilizing digoxin and continuing the IV diltiazem. His blood pressure is stable without pressors, though his urine output has decreased slightly and will be treated with a fluid bolus. He remains relatively poorly responsive and that he seems to look into with his eyes but he makes no effort to talk or otherwise communicate. 04/01/18: Mr. Call continues to do well clinically and it would appear that he is probably at his usual baseline although this is somewhat different than what his family member has depicted as being his baseline. He continues to be nonverbal in his responses and is more reactive and trying to push anyone who gets close to his body space away. He does not appear to be uncomfortable. His heart rate is well controlled and his blood pressure is stable. He will be transferred to the medical floor as soon as a bed is available. Cultures have been negative thus far empiric antibiotic therapy will be discontinued tomorrow if they remain so. 04/02/18: Nain remains stable today, with no change in his responsiveness. He continues to be contracted in a position and thus he remains tachypneic due to shallow breathing. His cultures have remained negative for growth and his heart rate is well controlled. He will be started on an oral diet today if cleared by speech on swallow study but I strongly suspect he will need need nutritional support with a PEG tube. This will be addressed with his family when the need is definitive. Hospice care would be another choice if the family desires to move to comfort measures only. 04/03/18: Shows little or no change today he is awake and his eyes are open he looks at me he will follow some movements with his eyes. He will also grasp my hand with his hand when asked to however he quickly had extension of this behavior and would not follow any other commands. He closed his eyes and return to sleep. His heart rate remains well controlled and his blood pressure stable. He has some discomfort when he is being turned from side to side to help avoid pressure sores into this and he will be given some fentanyl prior to position changes. His therapy is yet to evaluate this patient for his swallow study and once this is completed I will be discussing his situation with his daughter and family. Reason For Visit: SEVERE SEPSIS PNEUMONIA, DEMENTIA Physical Exam Vital Signs: Temp Pulse Resp BP Pulse Ox 97.3 F 87 18 120/83 95 04/03/18 16:40 04/03/18 16:47 04/03/18 16:47 04/03/18 16:21 04/03/18 16:47 Intake & Output 04/02/18 04/03/18 04/04/18 06:59 06:59 06:59 Intake Total 2150 2299 Output Total 1315 2405 645 Balance 835 -106 -645 Weight 56.4 kg 55.6 kg General appearance: PRESENT: no acute distress, thin Head exam: PRESENT: atraumatic, normocephalic Eye exam: PRESENT: conjunctiva pink. ABSENT: nystagmus, periorbital swelling, scleral icterus Ear exam: PRESENT: normal external ear exam. ABSENT: drainage Mouth exam: PRESENT: dry mucosa, tongue midline Neck exam: ABSENT: thyromegaly, tracheal deviation Respiratory exam: PRESENT: clear to auscultation chris, symmetrical, unlabored Cardiovascular exam: PRESENT: irregular rhythm. ABSENT: bradycardia, clicks, diastolic murmur, gallop, rubs, systolic murmur, tachycardia Vascular exam: PRESENT: normal capillary refill. ABSENT: pallor GI/Abdominal exam: PRESENT: normal bowel sounds, soft Rectal exam: PRESENT: deferred Extremities exam: ABSENT: joint swelling, pedal edema Musculoskeletal exam: PRESENT: other - Flexion contractures of bilateral lower extremities into the position.. ABSENT: deformity, dislocation Neurological exam: PRESENT: awake, CN II-XII grossly intact - To gross evaluation Psychiatric exam: PRESENT: other - Unable to assess Skin exam: ABSENT: jaundice, rash, urticaria Results Laboratory Results: 04/02/18 05:56 04/03/18 03:41 04/02/18 04/03/18 18:00 03:41 Sodium 141.8 140.6 Potassium 3.1 L 3.2 L Chloride 111 H 109 H Carbon Dioxide 29 27 Anion Gap 2 L 5 BUN 19 15 Creatinine 0.55 0.49 L Est GFR ( Amer) > 60 > 60 Est GFR (Non-Af Amer) > 60 > 60 Glucose 86 109 Calcium 8.7 8.6 Magnesium 1.6 03/30/18 03/30/18 03/30/18 07:27 07:27 16:26 Creatine Kinase 431 H 318 H CK-MB (CK-2) 5.17 H Troponin I 0.061 03/30/18 16:26 Creatine Kinase CK-MB (CK-2) 6.11 H Troponin I 0.055 Impressions: Chest X-Ray 03/30/18 00:50 IMPRESSION: Patchy areas of density in the right upper and right lower lobe which may reflect acute infectious or inflammatory process Prominent left hilum with some post obstructive atelectasis or infiltrate in the left mid and upper lung field. Recommend further evaluation with chest CT Assessment & Plan - Diagnosis (1) Atrial fibrillation Qualifiers: Atrial fibrillation type: chronic Qualified Code(s): I48.2 - Chronic atrial fibrillation Is this a current diagnosis for this admission?: Yes Plan: Continue rate control with digoxin and provide anticoagulation therapy with Lovenox (2) Pneumonia Qualifiers: Pneumonia type: due to unspecified organism Laterality: unspecified laterality Lung location: unspecified part of lung Qualified Code(s): J18.9 - Pneumonia, unspecified organism Is this a current diagnosis for this admission?: Yes Plan: As the patient is felt to be septic with hypotension, tachycardia and fever a likely source of sepsis would be pneumonia, though the x-ray evidence is not clear for supporting a pneumonia versus other inflammatory process or atelectasis. Patient was treated with a multiple IV antibiotic drug regiment utilizing cefepime and vancomycin until his blood and urine cultures remained negative for 3 days. His antibiotics will be switched to IV Ancef and his Nebulizer treatments will be reduced to q8hr. (3) Sepsis Qualifiers: Sepsis type: sepsis due to unspecified organism Qualified Code(s): A41.9 - Sepsis, unspecified organism Is this a current diagnosis for this admission?: Yes Plan: Evidenced by hypotension, tachycardia and fever; a sepsis protocol was initiated and the patient's was started on cefepime (switched to Invanz) and vancomycin to cover for HCAP. Patient was started on Levophed to support his blood pressure and was being given additional intravascular volume support with IV fluids. He is now stabilized well as indicated above. Will continue close observation for any adverse developments attributable to sepsis. WBC up today but no other changes noted. Antibiotics switched to Ancef to cover strep viridans recovered in his urine. (4) COPD (chronic obstructive pulmonary disease) Qualifiers: COPD type: unspecified COPD Qualified Code(s): J44.9 - Chronic obstructive pulmonary disease, unspecified Is this a current diagnosis for this admission?: Yes Plan: On admission: Clinical evaluation showed significant bronchospasm with poor air movement and significant labored breathing with retractions and use of accessory musculature. A vigorous pulmonary toilet, IV steroids and supplemental O2 with face mask or BiPAP were successfully employed to improve his respiratory status. 2nd day of care: Steroids will be discontinued today as the patient has shown dramatic improvement in his respiratory status. 3rd day of care: Reduce frequency of nebulizer therapy. Add budesonide nebs bid. (5) Dementia Qualifiers: Dementia type: unspecified type Dementia behavioral disturbance: without behavioral disturbance Qualified Code(s): F03.90 - Unspecified dementia without behavioral disturbance Is this a current diagnosis for this admission?: Yes Plan: Patient has significant dementia and this is making it difficult to do a complete assessment as he is not capable of providing adequate meaningful responses to facilitate his medical care. - Time Time Spent with patient: 35 or more minutes Medications reviewed and adjusted accordingly: Yes
[2018-04-03 19:30] LABS: BLOOD UREA NITROGEN 12 mg/dL (7-20); CALCIUM 8.2 mg/dL (8.4-10.2); GLUCOSE 117 mg/dL (75-110); POTASSIUM 3.6 mmol/L (3.6-5.0)
[2018-04-03 19:36] LABS: CARBON DIOXIDE 31 mmol/L (22-30); CHLORIDE 104 mmol/L (98-107)
[2018-04-03 19:41] LABS: ANION GAP 1 (5-19)
[2018-04-03 20:27] LABS: HEMATOCRIT 24.5 % (37.9-51.0); HEMOGLOBIN 8.4 g/dL (13.5-17.0); MEAN CORPUSCULAR HEMOGLOBIN 31.3 pg (27.0-33.4); MEAN CORPUSCULAR HGB CONC 34.2 g/dL (32.0-36.0); MEAN CORPUSCULAR VOLUME 92 fl (80-97); PLATELET COUNT 204 10^3/uL (150-450); RED BLOOD COUNT 2.67 10^6/uL (4.35-5.55); RED CELL DISTRIBUTION WIDTH 16.4 % (11.5-14.0)
[2018-04-04] MEDS: IPRATROPIUM BROMIDE 0.02% NEB 0.5 MG/2.5 ML AMPUL NEB SCH ×3 (00:21→15:58)
[2018-04-04] MEDS: LEVALBUTEROL HCL NEB 1.25 MG/3 ML AMPUL NEB SCH ×3 (00:21→15:58)
[2018-04-04] MEDS: FENTANYL CITRATE INJ/PF 100 MCG/2 ML AMPUL INJ PRN ×6 (01:45→21:16)
[2018-04-04] MEDS: CEFAZOLIN 1 GM/D5W RTU 1 GM/50 ML RTUPB IV SCH ×3 (05:11→21:17)
[2018-04-04] MEDS: BUDESONIDE NEB 0.5 MG/2 ML AMPUL NEB SCH ×2 (08:05→19:58)
[2018-04-04] MEDS: POTASSI CL 40 MEQ/D5-1/2NS 1L 1000 ML IV PRN ×2 (09:05→19:22)
[2018-04-04] MEDS: ENOXAPARIN SODIUM INJ 60 MG/0.6 ML DISP.SYRIN SUBCUT SCH ×2 (09:06→21:16)
[2018-04-04] MEDS: DIGOXIN INJ 0.5 MG/2 ML AMPULE IV SCH (09:06)
[2018-04-04] MEDS: LEVOTHYROXINE SODIUM INJ/PF 0.1 MG SDV IV SCH (09:08)
--- NOTE | 2018-04-04 11:57 | PDOC PROGRESS REPORT ---
Subjective Progress Note for:: 04/04/18 Subjective:: NAIN CALL is a 72 year old male presenting with a fever of 102 from [facility] facility. In the ER he was found to be poorly responsive with severe sepsis causing & hypotension, A. fib with RVR, and an acute exacerbation of COPD versus multilobar pneumonia with hypoxia. He was unable to provide any medical information due to his severe illness and dementia. He was admitted to the intensive care unit for further treatment. 03/30/18: Mr. Call has been started on a aggressive ulnar toilet utilizing levalbuterol and ipratropium given every 4 hours. Additionally IV steroids and IV fluids have been provided to treat the inflammatory and dehydration components of his illness. His hypotension has been addressed with both IV fluids and IV Levophed however the atrial fibrillation with RVR remains poorly controlled and further efforts at controlling it with digoxin will be continued. Sepsis is being treated with a multiple antibiotic therapy regimen. Thus far his response has been somewhat limited however will make continued efforts while providing both supportive and comfortive care. 03/31/18: Otis is responded reasonably well to his increased pulmonary toilet with improvement in his respiratory status. His improvement has also included his cardiac status with a controlled rate for his atrial fibrillation utilizing digoxin and continuing the IV diltiazem. His blood pressure is stable without pressors, though his urine output has decreased slightly and will be treated with a fluid bolus. He remains relatively poorly responsive and that he seems to look into with his eyes but he makes no effort to talk or otherwise communicate. 04/01/18: Mr. Call continues to do well clinically and it would appear that he is probably at his usual baseline although this is somewhat different than what his family member has depicted as being his baseline. He continues to be nonverbal in his responses and is more reactive and trying to push anyone who gets close to his body space away. He does not appear to be uncomfortable. His heart rate is well controlled and his blood pressure is stable. He will be transferred to the medical floor as soon as a bed is available. Cultures have been negative thus far empiric antibiotic therapy will be discontinued tomorrow if they remain so. 04/02/18: Nain remains stable today, with no change in his responsiveness. He continues to be contracted in a position and thus he remains tachypneic due to shallow breathing. His cultures have remained negative for growth and his heart rate is well controlled. He will be started on an oral diet today if cleared by speech on swallow study but I strongly suspect he will need need nutritional support with a PEG tube. This will be addressed with his family when the need is definitive. Hospice care would be another choice if the family desires to move to comfort measures only. 04/03/18: Mr. Call shows little or no change today he is awake and his eyes are open he looks at me he will follow some movements with his eyes. He will also grasp my hand with his hand when asked to however he quickly had extension of this behavior and would not follow any other commands. He closed his eyes and return to sleep. His heart rate remains well controlled and his blood pressure stable. He has some discomfort when he is being turned from side to side to help avoid pressure sores into this and he will be given some fentanyl prior to position changes. His therapy is yet to evaluate this patient for his swallow study and once this is completed I will be discussing his situation with his daughter and family. 04/04/18: Nain's evaluation today is essentially unchanged. He is again awake and his eyes move towards me when I say hello and introduced myself. His eyes and return to the midline and do not shift towards my voice when I speak to him again. He will follow a command once to grasp my finger but will not repeat the finger grasp. He does not respond at all when offered food or drink and he does not respond at all when asked about pain or other discomfort. Speech therapy assessment of his swallowing function is pending thus his disposition is still tentative until that evaluation can be performed. Reason For Visit: SEVERE SEPSIS PNEUMONIA, DEMENTIA Physical Exam Vital Signs: Temp Pulse Resp BP Pulse Ox 99.1 F 107 H 24 H 127/75 H 98 04/04/18 10:55 04/04/18 08:06 04/04/18 10:55 04/04/18 08:00 04/04/18 10:55 Intake & Output 04/03/18 04/04/18 04/05/18 06:59 06:59 06:59 Intake Total 2299 1150 980 Output Total 2405 1105 225 Balance -106 45 755 Weight 55.6 kg 54.2 kg General appearance: PRESENT: no acute distress, thin Head exam: PRESENT: atraumatic, normocephalic Eye exam: PRESENT: conjunctiva pink, EOMI. ABSENT: nystagmus, periorbital swelling, scleral icterus Ear exam: PRESENT: normal external ear exam. ABSENT: drainage Mouth exam: PRESENT: tongue midline. ABSENT: dry mucosa Neck exam: ABSENT: thyromegaly, tracheal deviation Respiratory exam: PRESENT: clear to auscultation chris, symmetrical, unlabored Cardiovascular exam: PRESENT: irregular rhythm. ABSENT: bradycardia, clicks, diastolic murmur, gallop, rubs, systolic murmur, tachycardia Vascular exam: PRESENT: normal capillary refill. ABSENT: pallor - [id number] GI/Abdominal exam: PRESENT: normal bowel sounds, soft Rectal exam: PRESENT: deferred Extremities exam: ABSENT: joint swelling, pedal edema Musculoskeletal exam: PRESENT: other - Decreased muscle masses of the bilateral lower extremities with flexion contractures bilaterally involving both the hip and knees. Patient is in a chronic position.. ABSENT: ambulatory, deformity Neurological exam: PRESENT: awake, CN II-XII grossly intact Psychiatric exam: PRESENT: other - Unable to evaluate Focused psych exam: PRESENT: other - Not verbally responsive and not communicative via body language or gesture Skin exam: ABSENT: jaundice, rash, urticaria Results Laboratory Results: 04/03/18 19:45 04/03/18 19:08 04/03/18 04/03/18 04/03/18 19:08 19:08 19:45 WBC Cancelled 15.0 H RBC Cancelled 2.67 L Hgb Cancelled 8.4 L Hct Cancelled 24.5 L MCV Cancelled 92 MCH Cancelled 31.3 MCHC Cancelled 34.2 RDW Cancelled 16.4 H Plt Count Cancelled 204 Sodium 136.0 L Potassium 3.6 Chloride 104 Carbon Dioxide 31 H Anion Gap 1 L BUN 12 Creatinine 0.42 L Est GFR ( Amer) > 60 Est GFR (Non-Af Amer) > 60 Glucose 117 H Calcium 8.2 L 03/30/18 03/30/18 03/30/18 07:27 07:27 16:26 Creatine Kinase 431 H 318 H CK-MB (CK-2) 5.17 H Troponin I 0.061 03/30/18 16:26 Creatine Kinase CK-MB (CK-2) 6.11 H Troponin I 0.055 Impressions: Chest X-Ray 03/30/18 00:50 IMPRESSION: Patchy areas of density in the right upper and right lower lobe which may reflect acute infectious or inflammatory process Prominent left hilum with some post obstructive atelectasis or infiltrate in the left mid and upper lung field. Recommend further evaluation with chest CT Assessment & Plan - Diagnosis (1) Atrial fibrillation Qualifiers: Atrial fibrillation type: chronic Qualified Code(s): I48.2 - Chronic atrial fibrillation Is this a current diagnosis for this admission?: Yes Plan: Continue rate control with digoxin and provide anticoagulation therapy with Lovenox (2) Pneumonia Qualifiers: Pneumonia type: due to unspecified organism Laterality: unspecified laterality Lung location: unspecified part of lung Qualified Code(s): J18.9 - Pneumonia, unspecified organism Is this a current diagnosis for this admission?: Yes Plan: As the patient is felt to be septic with hypotension, tachycardia and fever a likely source of sepsis would be pneumonia, though the x-ray evidence is not clear for supporting a pneumonia versus other inflammatory process or atelectasis. Patient was treated with a multiple IV antibiotic drug regiment utilizing cefepime and vancomycin until his blood and urine cultures remained negative for 3 days. His antibiotics will be switched to IV Ancef and his Nebulizer treatments will be reduced to q8hr. (3) Sepsis Qualifiers: Sepsis type: sepsis due to unspecified organism Qualified Code(s): A41.9 - Sepsis, unspecified organism Is this a current diagnosis for this admission?: Yes Plan: Evidenced by hypotension, tachycardia and fever; a sepsis protocol was initiated and the patient's was started on cefepime (switched to Invanz) and vancomycin to cover for HCAP. Patient was started on Levophed to support his blood pressure and was given additional intravascular volume support with IV fluids resulting in a stabilized blood pressure which has remained stable without the use of pressors or large volume boluses for the rest of the hospital course. Antibiotics were switched to Ancef to cover strep viridans recovered in his urine. (4) COPD (chronic obstructive pulmonary disease) Qualifiers: COPD type: unspecified COPD Qualified Code(s): J44.9 - Chronic obstructive pulmonary disease, unspecified Is this a current diagnosis for this admission?: Yes Plan: On admission: Clinical evaluation showed significant bronchospasm with poor air movement and significant labored breathing with retractions and use of accessory musculature. A vigorous pulmonary toilet, IV steroids and supplemental O2 with face mask or BiPAP were successfully employed to improve his respiratory status. 2nd day of care: Steroids will be discontinued today as the patient has shown dramatic improvement in his respiratory status. 3rd day of care: Reduce frequency of nebulizer therapy. Add budesonide nebs bid. - 5th day of care: Adjustments were made to the patient's nebulizer therapy regiment as his respiratory status continues to be very stable. Patient's air volume per breath is insufficient thus resulting in atypical shallow breathing pattern of mild tachypnea. His determination continues to show decreased breath sounds in the lower half to two thirds of his lung medrano consistent with atelectasis. Chest x-ray is planned for 04/04. (5) Dementia Qualifiers: Dementia type: unspecified type Dementia behavioral disturbance: without behavioral disturbance Qualified Code(s): F03.90 - Unspecified dementia without behavioral disturbance Is this a current diagnosis for this admission?: Yes Plan: Patient has significant dementia and this is making it difficult to do a complete assessment as he is not capable of providing adequate meaningful responses to facilitate his medical care. - Time Time Spent with patient: 35 or more minutes Medications reviewed and adjusted accordingly: Yes
--- NOTE | 2018-04-04 13:27 | RADIOLOGY REPORT (SQ) ---
EXAM DESCRIPTION: CHEST SINGLE VIEW COMPLETED DATE/TIME: 04/04/2018 12:32 pm REASON FOR STUDY: Chronic obstructive pulmonary disease COMPARISON: Chest films 08/19/2009, 09/04/2009, 07/04/2013, 03/30/2018 EXAM PARAMETERS: NUMBER OF VIEWS: One view. TECHNIQUE: Single frontal radiographic view of the chest acquired. RADIATION DOSE: NA LIMITATIONS: None. FINDINGS: LUNGS AND PLEURA: Increasing airspace disease throughout the right lung worrisome for pneu monia. New bandlike consolidation in the left retrocardiac region atelectasis versus pneumonia. No pleural effusion. No pneumothorax. MEDIASTINUM AND HILAR STRUCTURES: No masses. Contour normal. HEART AND VASCULAR STRUCTURES: Heart normal in size. Normal vasculature. BONES: No acute findings. HARDWARE: None in the chest. OTHER: No other significant finding. IMPRESSION: Increasing bilateral airspace disease worrisome for pneumonia TECHNICAL DOCUMENTATION: JOB ID: [id number] [employer]- All Rights Reserved Reading location - IP/workstation name: [email or web address]
[2018-04-04 18:57] LABS: HEMATOCRIT 22.8 % (37.9-51.0); MEAN CORPUSCULAR HEMOGLOBIN 31.7 pg (27.0-33.4); MEAN CORPUSCULAR HGB CONC 34.5 g/dL (32.0-36.0); MEAN CORPUSCULAR VOLUME 92 fl (80-97); PLATELET COUNT 207 10^3/uL (150-450); RED BLOOD COUNT 2.48 10^6/uL (4.35-5.55); RED CELL DISTRIBUTION WIDTH 16.3 % (11.5-14.0); WHITE BLOOD COUNT 12.7 10^3/uL (4.0-10.5)
[2018-04-04 19:04] LABS: HEMOGLOBIN 7.9 g/dL (13.5-17.0)
[2018-04-04 19:06] LABS: BLOOD UREA NITROGEN 8 mg/dL (7-20); GLUCOSE 112 mg/dL (75-110); POTASSIUM 3.8 mmol/L (3.6-5.0)
[2018-04-04 19:11] LABS: CARBON DIOXIDE 29 mmol/L (22-30); CHLORIDE 103 mmol/L (98-107); SODIUM 133.4 mmol/L (137-145)
[2018-04-04 19:16] LABS: ANION GAP 2 (5-19)
[2018-04-05] MEDS: IPRATROPIUM BROMIDE 0.02% NEB 0.5 MG/2.5 ML AMPUL NEB SCH ×2 (00:10→07:49)
[2018-04-05] MEDS: LEVALBUTEROL HCL NEB 1.25 MG/3 ML AMPUL NEB SCH ×2 (00:10→07:52)
[2018-04-05] MEDS: FENTANYL CITRATE INJ/PF 100 MCG/2 ML AMPUL INJ PRN ×3 (00:34→23:25)
[2018-04-05 04:24] LABS: HEMATOCRIT 24.2 % (37.9-51.0); HEMOGLOBIN 8.5 g/dL (13.5-17.0); MEAN CORPUSCULAR HGB CONC 35.1 g/dL (32.0-36.0); MEAN CORPUSCULAR VOLUME 91 fl (80-97); PLATELET COUNT 220 10^3/uL (150-450); RED BLOOD COUNT 2.66 10^6/uL (4.35-5.55); RED CELL DISTRIBUTION WIDTH 16.6 % (11.5-14.0); WHITE BLOOD COUNT 11.1 10^3/uL (4.0-10.5)
[2018-04-05 04:42] LABS: BLOOD UREA NITROGEN 6 mg/dL (7-20); CALCIUM 8.3 mg/dL (8.4-10.2); DIGOXIN 1.21 ng/mL (0.8-2.0); GLUCOSE 114 mg/dL (75-110); POTASSIUM 4.1 mmol/L (3.6-5.0)
[2018-04-05 04:45] LABS: CARBON DIOXIDE 31 mmol/L (22-30); CHLORIDE 102 mmol/L (98-107); SODIUM 135.9 mmol/L (137-145)
[2018-04-05 04:57] LABS: ANION GAP 3 (5-19)
[2018-04-05] MEDS: CEFAZOLIN 1 GM/D5W RTU 1 GM/50 ML RTUPB IV SCH (05:02)
[2018-04-05] MEDS: POTASSI CL 40 MEQ/D5-1/2NS 1L 1000 ML IV PRN (05:03)
[2018-04-05 06:18] LABS: APPEARANCE,URINE CLEAR; BILIRUBIN,URINE NEGATIVE (NEGATIVE); COLOR,URINE STRAW; GLUCOSE, URINE NEGATIVE (NEGATIVE); KETONES,URINE NEGATIVE (NEGATIVE); LEUKOCYTE ESTERASE,URINE NEGATIVE (NEGATIVE); NITRITE,URINE NEGATIVE (NEGATIVE); PROTEIN,URINE NEGATIVE (NEGATIVE); URINE SPECIFIC GRAVITY 1.008; UROBILINOGEN,URINE NEGATIVE mg/dL (<2.0)
[2018-04-05] MEDS: BUDESONIDE NEB 0.5 MG/2 ML AMPUL NEB SCH (07:50)
[2018-04-05] MEDS: ENOXAPARIN SODIUM INJ 60 MG/0.6 ML DISP.SYRIN SUBCUT SCH (10:30)
[2018-04-05] MEDS: DIGOXIN INJ 0.5 MG/2 ML AMPULE IV SCH (10:30)
[2018-04-05] MEDS: LEVOTHYROXINE SODIUM INJ/PF 0.1 MG SDV IV SCH (10:30)
--- NOTE | 2018-04-05 11:16 | PDOC PROGRESS REPORT ---
Subjective Progress Note for:: 04/05/18 Subjective:: NAIN CALL is a 72 year old male presenting with a fever of 102 from [facility]. In the ER he was found to be poorly responsive with severe sepsis causing & hypotension, A. fib with RVR, and an acute exacerbation of COPD versus multilobar pneumonia with hypoxia. He was unable to provide any medical information due to his severe illness and dementia. He was admitted to the intensive care unit for further treatment. 03/30/18: Mr. Call has been started on a aggressive ulnar toilet utilizing levalbuterol and ipratropium given every 4 hours. Additionally IV steroids and IV fluids have been provided to treat the inflammatory and dehydration components of his illness. His hypotension has been addressed with both IV fluids and IV Levophed however the atrial fibrillation with RVR remains poorly controlled and further efforts at controlling it with digoxin will be continued. Sepsis is being treated with a multiple antibiotic therapy regimen. Thus far his response has been somewhat limited however will make continued efforts while providing both supportive and comfortive care. 03/31/18: Otis is responded reasonably well to his increased pulmonary toilet with improvement in his respiratory status. His improvement has also included his cardiac status with a controlled rate for his atrial fibrillation utilizing digoxin and continuing the IV diltiazem. His blood pressure is stable without pressors, though his urine output has decreased slightly and will be treated with a fluid bolus. He remains relatively poorly responsive and that he seems to look into with his eyes but he makes no effort to talk or otherwise communicate. 04/01/18: Mr. Call continues to do well clinically and it would appear that he is probably at his usual baseline although this is somewhat different than what his family member has depicted as being his baseline. He continues to be nonverbal in his responses and is more reactive and trying to push anyone who gets close to his body space away. He does not appear to be uncomfortable. His heart rate is well controlled and his blood pressure is stable. He will be transferred to the medical floor as soon as a bed is available. Cultures have been negative thus far empiric antibiotic therapy will be discontinued tomorrow if they remain so. 04/02/18: Nain remains stable today, with no change in his responsiveness. He continues to be contracted in a position and thus he remains tachypneic due to shallow breathing. His cultures have remained negative for growth and his heart rate is well controlled. He will be started on an oral diet today if cleared by speech on swallow study but I strongly suspect he will need need nutritional support with a PEG tube. This will be addressed with his family when the need is definitive. Hospice care would be another choice if the family desires to move to comfort measures only. 04/03/18: Mr. Call shows little or no change today he is awake and his eyes are open he looks at me he will follow some movements with his eyes. He will also grasp my hand with his hand when asked to however he quickly had extension of this behavior and would not follow any other commands. He closed his eyes and return to sleep. His heart rate remains well controlled and his blood pressure stable. He has some discomfort when he is being turned from side to side to help avoid pressure sores into this and he will be given some fentanyl prior to position changes. His therapy is yet to evaluate this patient for his swallow study and once this is completed I will be discussing his situation with his daughter and family. 04/04/18: Nain's evaluation today is essentially unchanged. He is again awake and his eyes move towards me when I say hello and introduced myself. His eyes and return to the midline and do not shift towards my voice when I speak to him again. He will follow a command once to grasp my finger but will not repeat the finger grasp. He does not respond at all when offered food or drink and he does not respond at all when asked about pain or other discomfort. Speech therapy assessment of his swallowing function is pending thus his disposition is still tentative until that evaluation can be performed. 04/05/18: Mr. Call is again essentially unchanged to examination in the ICU. His status was changed to medical floor several days ago however he has not been able to be moved from the ICU due to bed flow problems throughout the hospital. He remains nearly catatonic for the most part. Speech therapy did attempt to do a swallow study with him however he was unable to tolerate more than just 2 or 3 half teaspoons full of water or ice chips before he became severely hypoxic and overcome by air hunger. Even without his respiratory distress he was noted to have been coughing when he tried to swallow on at least one of the 2 or 3 attempts. The speech therapist felt that it was most likely he was aspirating but a formal study would need to be done to verify that result and he would not be able to tolerate being off high flow oxygen long enough to accomplish a barium swallow study. I have discussed this finding with the speech therapist and the patient's nurses and I believe that we need to speak with the patient's daughter and medical decision maker about either placing a feeding tube to provide nutritional and fluid support to meet his basic needs for nutrition and water or we need to consider hospice placement to allow for a comfortable and dignified end-of-life. Hopefully we will be able to reach his daughter and medical decision maker today such that we can begin planning for the option that she chooses. Reason For Visit: SEVERE SEPSIS PNEUMONIA, DEMENTIA Physical Exam Vital Signs: Temp Pulse Resp BP Pulse Ox 98.6 F 97 20 110/67 94 04/05/18 10:00 04/05/18 09:57 04/05/18 10:00 04/04/18 22:33 04/05/18 10:00 Intake & Output 04/04/18 04/05/18 04/06/18 06:59 06:59 06:59 Intake Total 1200 3030 Output Total 1105 2190 425 Balance 95 840 -425 Weight 54.2 kg 55.9 kg General appearance: PRESENT: no acute distress, other - Remains in a position his eyes are open but he does not direct his gaze today. His appearance is almost catatonic. Head exam: PRESENT: atraumatic, normocephalic Eye exam: PRESENT: conjunctiva pink. ABSENT: conjunctival injection, periorbital swelling, scleral icterus Ear exam: PRESENT: normal external ear exam. ABSENT: drainage Neck exam: ABSENT: thyromegaly, tracheal deviation Respiratory exam: PRESENT: decreased breath sounds - Throughout all medrano, symmetrical, tachypnea - Very shallow low volume breaths.. ABSENT: rales, rhonchi, wheezes Cardiovascular exam: PRESENT: irregular rhythm. ABSENT: bradycardia, clicks, diastolic murmur, gallop, rubs, systolic murmur, tachycardia Vascular exam: PRESENT: normal capillary refill. ABSENT: pallor GI/Abdominal exam: PRESENT: [place] bowel sounds - [address], soft Rectal exam: PRESENT: deferred Extremities exam: ABSENT: joint swelling, pedal edema Musculoskeletal exam: PRESENT: other - Bilateral flexion contractures of the knees and hips as previously noted. Decreased muscle mass of all extremities as previously noted.. ABSENT: ambulatory, deformity, dislocation Neurological exam: PRESENT: altered - Patient does respond to some tactile stimuli but does not respond to verbal stimuli at all today., CN II-XII grossly intact Psychiatric exam: PRESENT: flat affect, other - Appears very withdrawn and nearly catatonic on today's evaluation. Skin exam: ABSENT: jaundice, rash, urticaria Results Laboratory Results: 04/05/18 03:43 04/05/18 03:43 04/04/18 04/04/18 04/05/18 18:35 18:35 03:43 WBC 12.7 H 11.1 H RBC 2.48 L 2.66 L Hgb 7.9 L 8.5 L Hct 22.8 L 24.2 L MCV 92 91 MCH 31.7 32.0 MCHC 34.5 35.1 RDW 16.3 H 16.6 H Plt Count 207 220 Sodium 133.4 L Potassium 3.8 Chloride 103 Carbon Dioxide 29 Anion Gap 2 L BUN 8 Creatinine 0.46 L Est GFR ( Amer) > 60 Est GFR (Non-Af Amer) > 60 Glucose 112 H Calcium 8.0 L Magnesium Urine Color Urine Appearance Urine pH Ur Specific [place] Urine Protein Urine Glucose (UA) Urine Ketones Urine Blood Urine Nitrite Ur Leukocyte Esterase Urine WBC (Auto) Urine RBC (Auto) 04/05/18 04/05/18 03:43 06:00 WBC RBC Hgb Hct MCV MCH MCHC RDW Plt Count Sodium 135.9 L Potassium 4.1 Chloride 102 Carbon Dioxide 31 H Anion Gap 3 L BUN 6 L Creatinine 0.40 L Est GFR ( Amer) > 60 Est GFR (Non-Af Amer) > 60 Glucose 114 H Calcium 8.3 L Magnesium 1.5 L Urine Color STRAW Urine Appearance CLEAR Urine pH 5.0 Ur Specific [place] 1.008 Urine Protein NEGATIVE Urine Glucose (UA) NEGATIVE Urine Ketones NEGATIVE Urine Blood NEGATIVE Urine Nitrite NEGATIVE Ur Leukocyte Esterase NEGATIVE Urine WBC (Auto) 1 Urine RBC (Auto) 1 03/30/18 03/30/18 03/30/18 07:27 07:27 16:26 Creatine Kinase 431 H 318 H CK-MB (CK-2) 5.17 H Troponin I 0.061 03/30/18 16:26 Creatine Kinase CK-MB (CK-2) 6.11 H Troponin I 0.055 Impressions: Chest X-Ray 04/04/18 00:00 IMPRESSION: Increasing bilateral airspace disease worrisome for pneumonia Assessment & Plan - Diagnosis (1) Atrial fibrillation Qualifiers: Atrial fibrillation type: chronic Qualified Code(s): I48.2 - Chronic atrial fibrillation Is this a current diagnosis for this admission?: Yes Plan: Continue rate control with digoxin and provide anticoagulation therapy with Lovenox (2) Pneumonia Qualifiers: Pneumonia type: due to unspecified organism Laterality: unspecified laterality Lung location: unspecified part of lung Qualified Code(s): J18.9 - Pneumonia, unspecified organism Is this a current diagnosis for this admission?: Yes Plan: As the patient is felt to be septic with hypotension, tachycardia and fever a likely source of sepsis would be pneumonia, though the x-ray evidence is not clear for supporting a pneumonia versus other inflammatory process or atelectasis. Patient was treated with a multiple IV antibiotic drug regiment utilizing cefepime and vancomycin until his blood and urine cultures remained negative for 3 days. His antibiotics were switched to IV Ancef and his Nebulizer treatments were reduced to q8hr. his respiratory status has reached a plateau which may be his baseline but this is very difficult to determine being as I have no prior experience with this patient outside of this hospitalization. He maintains good oxygenation with his shallow breathing and tachypnea utilizing supplemental oxygen either by nasal cannula at high flow or by oxygen mask, he will not tolerate a BiPAP or CPAP mask as he becomes very agitated with attempted use as of these devices. (3) Sepsis Qualifiers: Sepsis type: sepsis due to unspecified organism Qualified Code(s): A41.9 - Sepsis, unspecified organism Is this a current diagnosis for this admission?: Yes Plan: Evidenced by hypotension, tachycardia and fever; a sepsis protocol was initiated and the patient's was started on cefepime (switched to Invanz) and vancomycin to cover for HCAP. Patient was started on Levophed to support his blood pressure and was given additional intravascular volume support with IV fluids resulting in a stabilized blood pressure which has remained stable without the use of pressors or large volume boluses for the rest of the hospital course. Antibiotics were switched to Ancef to cover a possible pneumonia and also to provide antibiotic coverage for strep viridans recovered in his urine. His white blood count has returned to normal and he continues to be hemodynamically stable. (4) COPD (chronic obstructive pulmonary disease) Qualifiers: COPD type: unspecified COPD Qualified Code(s): J44.9 - Chronic obstructive pulmonary disease, unspecified Is this a current diagnosis for this admission?: Yes Plan: On admission: Clinical evaluation showed significant bronchospasm with poor air movement and significant labored breathing with retractions and use of accessory musculature. A vigorous pulmonary toilet, IV steroids and supplemental O2 with face mask or BiPAP were successfully employed to improve his respiratory status. 2nd day of care: Steroids will be discontinued today as the patient has shown dramatic improvement in his respiratory status. 3rd day of care: Reduce frequency of nebulizer therapy. Add budesonide nebs bid. - day of care: Adjustments were made to the patient's nebulizer therapy regiment as his respiratory status continues to be very stable. Patient's air volume per breath is insufficient thus resulting in atypical shallow breathing pattern of mild tachypnea. His determination continues to show decreased breath sounds in the lower half to two thirds of his lung medrano consistent with atelectasis. Chest x-ray is planned for 04/04. 6th day of care: Patient continues to be tachypneic and becomes very hypoxic if he is off supplemental oxygen for a very short period of time. He was unable to tolerate his swallow study and did cough with a half a teaspoon of ice chips. Speech therapist felt that he was probably aspirating but it would require a full formal swallow study to verify that diagnosis and he would not be able to tolerate the study. He has not shown any evidence of bronchospasm for several days and evidently did not have severe COPD prior to this event. His chest x-ray shows a possible worsening of the right pulmonary process. At this point I will discontinue his nebulizer therapy and we will be discussing a feeding tube versus hospice care with his medical decision-maker. (5) Dementia Qualifiers: Dementia type: unspecified type Dementia behavioral disturbance: without behavioral disturbance Qualified Code(s): F03.90 - Unspecified dementia without behavioral disturbance Is this a current diagnosis for this admission?: Yes Plan: Patient has significant dementia and this is making it difficult to do a complete assessment as he is not capable of providing adequate meaningful responses to facilitate his medical care. - Time Time Spent with patient: 35 or more minutes
[2018-04-05] MEDS ORDERED: MAGNESIUM SULFATE/D5W 1 GM/100 ML RTUPB IV ONE (11:30)
[2018-04-06 05:20] VITALS: BP 105/64
[2018-04-06] MEDS ORDERED: LEVOTHYROXINE SODIUM INJ/PF 0.1 MG SDV IV SCH (10:00)
[2018-04-06] MEDS: FENTANYL CITRATE INJ/PF 100 MCG/2 ML AMPUL INJ PRN ×2 (14:56→22:32)
--- NOTE | 2018-04-06 20:05 | PDOC PROGRESS REPORT ---
Subjective Progress Note for:: 04/06/18 Subjective:: Assumed care today. Mr. Tobias is a PMH of COPD, dementia, multiple contractures, history of A. fib who was admitted to the ICU because of acute respiratory failure from COPD exacerbation and multilobar pneumonia. Patient is a DNR/DNI. He was transitioned to comfort measures yesterday. Patient also has failed swallow evaluations. No acute event overnight. He is not in acute distress at the moment but does significantly desaturate when taken off the nasal cannula. Reason For Visit: SEVERE SEPSIS PNEUMONIA, DEMENTIA Physical Exam Vital Signs: Temp Pulse Resp BP Pulse Ox 98.2 F 97 24 H 105/64 99 04/06/18 05:19 04/06/18 05:19 04/06/18 05:19 04/06/18 05:19 04/06/18 05:19 Intake & Output 04/05/18 04/06/18 04/07/18 06:59 06:59 06:59 Intake Total 3030 1000 Output Total 2190 1475 515 Balance 840 -475 -515 Weight 123 lb 3.814 oz General appearance: PRESENT: thin Head exam: PRESENT: atraumatic, normocephalic Eye exam: PRESENT: conjunctiva pink, EOMI, PERRLA. ABSENT: scleral icterus Ear exam: PRESENT: normal external ear exam Mouth exam: PRESENT: moist, tongue midline Neck exam: ABSENT: carotid bruit, JVD, lymphadenopathy, thyromegaly Respiratory exam: PRESENT: rhonchi Cardiovascular exam: PRESENT: RRR. ABSENT: diastolic murmur, rubs, systolic murmur Rectal exam: PRESENT: deferred Musculoskeletal exam: PRESENT: other - Notable contractures Neurological exam: PRESENT: altered, awake Results Laboratory Results: 04/05/18 03:43 04/05/18 03:43 03/30/18 03/30/18 03/30/18 07:27 07:27 16:26 Creatine Kinase 431 H 318 H CK-MB (CK-2) 5.17 H Troponin I 0.061 03/30/18 16:26 Creatine Kinase CK-MB (CK-2) 6.11 H Troponin I 0.055 Impressions: Chest X-Ray 04/04/18 00:00 IMPRESSION: Increasing bilateral airspace disease worrisome for pneumonia Assessment & Plan - Diagnosis (1) Acute respiratory failure with hypoxia Is this a current diagnosis for this admission?: Yes Plan: Secondary to COPD exacerbation and multilobar pneumonia. As mentioned, patient was transitioned to comfort measures yesterday. His antibiotics were also discontinued yesterday. Continue comfort medications. - Time Time Spent with patient: 15-24 minutes
--- NOTE | 2018-04-07 13:54 | PDOC TRANSFER SUMMARY ---
General Admission Date/PCP: 03/30/18 05:47 Resuscitation Status: Comfort Measures Only - Transfer Diagnosis (1) Acute respiratory failure with hypoxia Is this a current diagnosis for this admission?: Yes - Transfer Medications Home Medications: Acetaminophen [Tylenol 650 mg Supp] 650 mg [place] PRN PRN 03/30/18 Albuterol Sulfate [Ventolin Hfa] 2 puff IH Q4 PRN 03/30/18 Apixaban [Eliquis 5 mg Tablet] 5 mg PO Q12 03/30/18 Atorvastatin Calcium [Lipitor 40 mg Tablet] 40 mg PO QHS 03/30/18 Benztropine Mesylate [Benztropine Mesylate 0.5 mg Tablet] 0.5 mg PO QHS Chlorthalidone [Chlorthalidone 25 mg Tablet] 12.5 mg PO DAILY 03/30/18 Cholecalciferol (Vitamin D3) [Vitamin D3 2000 unit Tablet] 2,000 unit PO DAILY 03/30/18 Divalproex Sodium [Depakote] 500 mg PO BID 03/30/18 Fluticasone/Salmeterol [Advair 250-50 Diskus 28 dose] 1 inh IH Q12 03/30/18 Haloperidol [Haldol 5 mg Tablet] 7.5 mg PO BID 03/30/18 Hydrocodone/Acetaminophen [[place] 5-325 mg Tablet] 1 tab PO BIDP PRN 03/30/18 Ipratropium/Albuterol Sulfate [Duoneb 3 ml Ampul] 3 ml NEB RTQ4HP PRN 03/30/18 Levothyroxine Sodium [Synthroid] 75 mcg PO DAILY 03/30/18 Omeprazole 40 mg PO BID 03/30/18 Polyethylene Glycol 3350 [Miralax Powder 17 gm/Packet] 1 packet PO DAILY Potassium Chloride 20 meq PO BID 03/30/18 Sertraline HCl [Zoloft] 100 mg PO DAILY 03/30/18 Tamsulosin HCl [Flomax 0.4 mg Cap.sr] 0.4 mg PO QHS 03/30/18 Transfer Medications: Current Medications Fentanyl Citrate (Sublimaze Inj/Pf 100 Mcg/2 Ml Ampule) 50 mcg INJ Q1H PRN PRN Reason: FOR PAIN Stop: 04/10/18 08:29 Last Admin: 04/06/18 22:32 Dose: 50 mcg Haloperidol Lactate (Haldol 5 Mg/Ml Inj 1 Ml Vial) 1 mg IV Q6HP PRN PRN Reason: RESTLESSNESS/AGITATION Stop: 04/29/18 11:31 Last Admin: 04/02/18 03:10 Dose: 1 mg Sodium Chloride (Saline Flush 2.5 Ml Monoject Prefil Syrin) 2.5 ml IV Q8 FRANTZ Stop: 04/29/18 05:59 Last Admin: 04/07/18 06:03 Dose: Not Given - Allergies Allergies/Adverse Reactions: tiotropium [From Spiriva with HandiHaler] Adverse Reaction (Verified 04/05/18 21 :45) Hospital Course Hospital Course: Mr. Tobias is a 72 yr old male with a PMH of COPD, dementia, multiple contractures, history of A. fib who was admitted to the ICU because of acute respiratory failure from COPD exacerbation and multilobar pneumonia. He was intially started on broad spectrum IV antibiotics, breathing treatments and steroids. Patient is a DNR/DNI. He was transitioned to comfort measures on 04/05/18. He received 7 days of broad spectrum IV antibiotics after he was transitioned to comfort measures. Patient also has failed swallow evaluations and has a very high risk of aspiration. DPOA did express they will not pursue any form of artificial feeding like PEG or NG tube. He desaturate when taken off nasal cannula. Rediscussed plan of care with DPHENNY Savage) on 04/06 and . Explained that patient's home medications will not be resumed upon transfer/discharge due to high risk of aspiration from dysphagia. She verbalized she understood this and was agreeable to patient going to [facility] today under comfort measures. Physical Exam Vital Signs: Temp Pulse Resp BP Pulse Ox 98.2 F 97 24 H 105/64 99 04/06/18 05:19 04/06/18 05:19 04/06/18 05:19 04/06/18 05:19 04/06/18 05:19 Intake & Output 04/06/18 04/07/18 04/08/18 06:59 06:59 06:59 Intake Total 1000 Output Total 1475 690 100 Balance -475 -690 -100 Weight 112 lb 10.499 oz General appearance: PRESENT: thin, other - has multiple contractures Head exam: PRESENT: atraumatic, normocephalic Eye exam: PRESENT: conjunctiva pink, EOMI, PERRLA. ABSENT: scleral icterus Ear exam: PRESENT: normal external ear exam Mouth exam: PRESENT: dry mucosa Neck exam: ABSENT: carotid bruit, JVD, lymphadenopathy, thyromegaly Respiratory exam: PRESENT: crackles, rhonchi Pulses: PRESENT: normal dorsalis pedis pul GI/Abdominal exam: PRESENT: normal bowel sounds, soft. ABSENT: distended, guarding, mass, organolmegaly, rebound, tenderness Rectal exam: PRESENT: deferred Musculoskeletal exam: PRESENT: other - note of multiple contractures Neurological exam: PRESENT: altered, awake Results Laboratory Results: 04/05/18 03:43 04/05/18 03:43 03/30/18 03/30/18 03/30/18 07:27 07:27 16:26 Creatine Kinase 431 H 318 H CK-MB (CK-2) 5.17 H Troponin I 0.061 03/30/18 16:26 Creatine Kinase CK-MB (CK-2) 6.11 H Troponin I 0.055 Impressions: Chest X-Ray 04/04/18 00:00 IMPRESSION: Increasing bilateral airspace disease worrisome for pneumonia
== END 2018-04-07 16:45 | DRG 871 ==
LOC: ER 00:35 → EH 05:47 → ICU 08:00
PROVIDERS: ADMIT Internal Medicine; ATTEND Internal Medicine
PROC: 5A09357 Assistance with Respiratory Ventilation, Less than 24 Consecutive Hours, Continuous Positive Airway Pressure (ICD-10-PCS; principal; 2018-03-30)
PROC: 3E0F73Z Introduction of Anti-inflammatory into Respiratory Tract, Via Natural or Artificial Opening (ICD-10-PCS; 2018-03-31)
DX: A41.9 Sepsis, unspecified organism (principal); J18.9 Pneumonia, unspecified organism; J96.01 Acute respiratory failure with hypoxia; I69.354 Hemiplegia and hemiparesis following cerebral infarction affecting left non-dominant side; J44.1 Chronic obstructive pulmonary disease with (acute) exacerbation; J44.0 Chronic obstructive pulmonary disease with (acute) lower respiratory infection; F03.90 Unspecified dementia, unspecified severity, without behavioral disturbance, psychotic disturbance, mood disturbance, and anxiety; I48.2 Chronic atrial fibrillation; F31.9 Bipolar disorder, unspecified; E03.9 Hypothyroidism, unspecified; F25.9 Schizoaffective disorder, unspecified; Z66 Do not resuscitate; Z82.49 Family history of ischemic heart disease and other diseases of the circulatory system; E86.0 Dehydration; Z51.5 Encounter for palliative care
CPT/HCPCS: 36415; 71045; 80048; 80053; 80162; 80202; 81001; 82550; 82553; 82803; 83605; 83735; 84132; 84443; 84484; 85025; 85027; 85610; 87040; 87086; 93005; 93010; 94640; 96361; 96365; 96366; 96367; 99291; G8978-GP; G8979-GP; G8980-GP; G8996-GN; G8997-GN; J0690; J0692; J1160; J1630; J1650; J2543; J2920; J2930; J3010; J3370; J3480; J3490; J7060